=== PATIENT | male | born 1940 | race Caucasian/White ===

== ENCOUNTER → 2019-02-12 | Outpatient (CLI) | payer MEDICARE ==
--- NOTE | 2019-02-12 12:48 | US ---
EXAMINATION TYPE: US kidneys/renal and bladder DATE OF EXAM: 02/12/2019 COMPARISON: NONE CLINICAL HISTORY: R31.9 hematuria. Pt states gross hematuria EXAM MEASUREMENTS: Right Kidney: 11.7 x 5.7 x 4.8 cm Left Kidney: 10.9 x 4.8 x 5.3 cm Right Kidney: Cyst upper pole= 0.9 x 0.6 x 0.8 cm Left Kidney: Cystic lesion lateral= 1.8 x 2.0 x 1.9 cm. This may have a septation or be [address] Recommend follow-up Bladder: wnl Bilateral Jets seen: Yes IMPRESSION: 1. Bilateral renal cysts. The one on the left may contain a septation and follow-up monitoring is rec ommended
== END | disposition home or self-care (01) ==
LOC: RADUSWWP 12:11
PROVIDERS: ATTEND Urology
DX: N28.1 Cyst of kidney, acquired (principal)
CPT/HCPCS: 76770

== ENCOUNTER → 2019-03-10 | Outpatient (CLI) | payer MEDICARE ==
[2019-03-10 08:54] LABS: African American GFR (CKD) >90 (>60 ml/min/1.73 sqM); Blood Urea Nitrogen 21 mg/dL (9-20)
--- NOTE | 2019-03-10 09:59 | CT ---
EXAMINATION TYPE: CT abdomen wo/w con DATE OF EXAM: 03/10/2019 COMPARISON: Renal ultrasound February 12, 2019 HISTORY: Cyst of kidney, acquired CT DLP: 989 mGycm, Automated Exposure Control for Dose Reduction was Utilized. CONTRAST: CT scan of the abdomen is performed without oral and without and with IV Contrast, patient injected w ith 100 ml mL of Isovue 300. FINDINGS: LUNG BASES: Left basilar linear scarring and/or atelectasis. LIVER/GB: Scattered hypodense lesions throughout the liver most prominent left hepatic lobe are felt to reflect thin-walled cysts. Majority are near or subcentimeter in size PANCREAS: No significant abnormality is seen. SPLEEN: No significant abnormality is seen. ADRENALS: No significant abnormality is seen. KIDNEYS: No renal stones are evident bilaterally. Postcontrast images show symmetric cortical medull seferino uptake and excretion without hydronephrosis seen bilaterally. I do not see simple-appearing subce ntimeter cyst upper pole right kidney. There is some ill-defined fluid along posterior margin subcent imeter in size. There is subcentimeter low dense lesion anteriorly lower pole right kidney measures 3 9 series 11 to small to further characterize for presumed benign. Corresponding to recent ultrasound there is upper to mid pole simple appearing thin-walled cyst measuring 1.8 x 1.5 cm image 25 series 1 1. No suspicious thickened septa or nodularity. No enhancement. BOWEL: No significant abnormality is seen. LYMPH NODES: No greater than 1cm abdominal or pelvic lymph nodes are appreciated. OSSEOUS STRUCTURES: Multilevel spondylolisthesis and spurring in the thoracolumbar spine. Moderate di sc space narrowing L4-L5 level. OTHER: No significant additional abnormality is seen. IMPRESSION: 1. No concerning solid or cystic renal masses bilaterally with particular attention to le ft kidney at area of ultrasound concern.
== END ==
LOC: RADCTMAIN 07:47
PROVIDERS: ATTEND Urology
DX: N28.1 Cyst of kidney, acquired (principal)
CPT/HCPCS: 82565; 84520; 74170; 36415; Q9967

== ENCOUNTER 2019-10-05 20:23 | Emergency (ER) | payer MEDICARE ==
[2019-10-05 20:32] VITALS: RESP 18; TEMP 98.4
[2019-10-05] MEDS ORDERED: DIPH,PERTUS(ACELL)TETVAC-LF 0.5 ML VIAL IM ONE (20:48)
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
[2019-10-05 22:46] VITALS: BP 140/84; PULSE 54
== END 2019-10-05 22:46 | disposition home or self-care (01) ==
LOC: EC 20:23
DX: S00.83XA Contusion of other part of head, initial encounter (principal); S40.212A Abrasion of left shoulder, initial encounter; S01.112A Laceration without foreign body of left eyelid and periocular area, initial encounter; Z23 Encounter for immunization; V13.4XXA Pedal cycle driver injured in collision with car, pick-up truck or van in traffic accident, initial encounter; Y92.410 Unspecified street and highway as the place of occurrence of the external cause
CPT/HCPCS: 70450; 70486; 71046; 72125; 90471; 90715; 99284

== ENCOUNTER 2020-12-23 11:09 | Inpatient (IN) | payer MEDICARE ==
--- NOTE | 2020-12-23 11:46 | ED ---
General Adult HPI - General Chief complaint: Abdominal Pain Stated complaint: Lower L abd pain Time Seen by Provider: 12/23/20 11:16 Source: patient, RN notes reviewed, old records reviewed Mode of arrival: ambulatory Limitations: no limitations - History of Present Illness Initial comments: 80-year-old male presenting with worsening left lower abdominal pain. Patient states he has had symptoms for the past 6 months. Today this pain became more severe and lasted for a longer period of time. No vomiting or diarrhea. No fevers. He states he has had an unexplained weight loss. He believes his last colonoscopy was 5 years ago. Denies scrotal pain. - Related Data Allergies Allergy/AdvReac Type Severity Reaction Status Date / Time No Known Allergies Allergy Verified 12/23/20 11:13 Review of Systems ROS Statement: Those systems with pertinent positive or pertinent negative responses have been documented in the HPI. ROS Other: All systems not noted in ROS Statement are negative. Past Medical History Past Medical History: Cancer, Prostate Disorder History of Any Multi-Drug Resistant Organisms: None Reported Past Surgical History: No Surgical Hx Reported Past Psychological History: No Psychological Hx Reported Smoking Status: Never smoker Past Alcohol Use History: None Reported Past Drug Use History: None Reported General Exam Limitations: no limitations General appearance: alert, in no apparent distress Head exam: Present: atraumatic, normocephalic Eye exam: Present: normal appearance, PERRL ENT exam: Present: normal exam Neck exam: Present: normal inspection. Absent: tenderness, meningismus Respiratory exam: Present: normal lung sounds bilaterally, respiratory distress Cardiovascular Exam: Present: normal rhythm, bradycardia GI/Abdominal exam: Present: soft, tenderness (Left lower quadrant), hernia (Left inguinal hernia, tender, incarcerated). Absent: distended Extremities exam: Present: normal inspection, normal capillary refill. Absent: pedal edema Neurological exam: Present: alert, oriented X3, CN II-XII intact. Absent: motor sensory deficit Psychiatric exam: Present: normal affect, normal mood Skin exam: Present: warm, dry, intact Course Vital Signs 12/23/20 12/23/20 11:10 13:00 Temperature 97.5 F L Pulse Rate 43 L 44 L Respiratory 18 20 Rate Blood Pressure 162/69 142/81 O2 Sat by Pulse 98 99 Oximetry EKG Findings - EKG Comments: EKG Findings:: EKG: Sinus bradycardia, rate of 46, IL interval 158, QRS duration 94, QTC 392. No ST segment elevation. Medical Decision Making - Medical Decision Making CT shows left inguinal hernia which is incarcerated. Case discussed with Dr. Ley who will admit. - Lab Data Result diagrams: 12/23/20 11:46 12/23/20 11:46 Lab Results 12/23/20 12/23/20 12/23/20 Range/Units 11:46 11:46 11:46 WBC 12.6 H (3.8-10.6) k/uL RBC 5.17 (4.30-5.90) m/uL Hgb 16.9 (13.0-17.5) gm/dL Hct 50.8 (39.0-53.0) % MCV 98.3 (80.0-100.0) fL MCH 32.6 (25.0-35.0) pg MCHC 33.2 (31.0-37.0) g/dL RDW 13.6 (11.5-15.5) % Plt Count 250 (150-450) k/uL MPV 7.2 Neutrophils % 86 % Lymphocytes % 8 % Monocytes % 4 % Eosinophils % 0 % Basophils % 1 % Neutrophils # 10.9 H (1.3-7.7) k/uL Lymphocytes # 1.1 (1.0-4.8) k/uL Monocytes # 0.5 (0-1.0) k/uL Eosinophils # 0.1 (0-0.7) k/uL Basophils # 0.1 (0-0.2) k/uL Sodium 138 (137-145) mmol/L Potassium 4.3 (3.5-5.1) mmol/L Chloride 105 (98-107) mmol/L Carbon Dioxide 26 (22-30) mmol/L Anion Gap 7 mmol/L BUN 19 (9-20) mg/dL Creatinine 0.57 L (0.66-1.25) mg/dL Est GFR (CKD-EPI)AfAm >90 (>60 ml/min/1.73 sqM) Est GFR (CKD-EPI)NonAf >90 (>60 ml/min/1.73 sqM) Glucose 111 H (74-99) mg/dL Plasma Lactic Acid Fady 1.3 (0.7-2.0) mmol/L Calcium 9.6 (8.4-10.2) mg/dL Total Bilirubin 0.9 (0.2-1.3) mg/dL AST 28 (17-59) U/L ALT 18 (4-49) U/L Alkaline Phosphatase 64 (38-126) U/L Total Protein 6.6 (6.3-8.2) g/dL Albumin 4.2 (3.5-5.0) g/dL Amylase 104 (30-110) U/L Lipase 119 (23-300) U/L Urine Color Urine Appearance (Clear) Urine pH (5.0-8.0) Ur Specific [place] (1.001-1.035) Urine Protein (Negative) Urine Glucose (UA) (Negative) Urine Ketones (Negative) Urine Blood (Negative) Urine Nitrite (Negative) Urine Bilirubin (Negative) Urine Urobilinogen (<2.0) mg/dL Ur Leukocyte Esterase (Negative) 12/23/20 Range/Units 13:00 WBC (3.8-10.6) k/uL RBC (4.30-5.90) m/uL Hgb (13.0-17.5) gm/dL Hct (39.0-53.0) % MCV (80.0-100.0) fL MCH (25.0-35.0) pg MCHC (31.0-37.0) g/dL RDW (11.5-15.5) % Plt Count (150-450) k/uL MPV Neutrophils % % Lymphocytes % % Monocytes % % Eosinophils % % Basophils % % Neutrophils # (1.3-7.7) k/uL Lymphocytes # (1.0-4.8) k/uL Monocytes # (0-1.0) k/uL Eosinophils # (0-0.7) k/uL Basophils # (0-0.2) k/uL Sodium (137-145) mmol/L Potassium (3.5-5.1) mmol/L Chloride (98-107) mmol/L Carbon Dioxide (22-30) mmol/L Anion Gap mmol/L BUN (9-20) mg/dL Creatinine (0.66-1.25) mg/dL Est GFR (CKD-EPI)AfAm (>60 ml/min/1.73 sqM) Est GFR (CKD-EPI)NonAf (>60 ml/min/1.73 sqM) Glucose (74-99) mg/dL Plasma Lactic Acid Fady (0.7-2.0) mmol/L Calcium (8.4-10.2) mg/dL Total Bilirubin (0.2-1.3) mg/dL AST (17-59) U/L ALT (4-49) U/L Alkaline Phosphatase (38-126) U/L Total Protein (6.3-8.2) g/dL Albumin (3.5-5.0) g/dL Amylase (30-110) U/L Lipase (23-300) U/L Urine Color Yellow Urine Appearance Clear (Clear) Urine pH 7.0 (5.0-8.0) Ur Specific [place] 1.050 H (1.001-1.035) Urine Protein Negative (Negative) Urine Glucose (UA) Negative (Negative) Urine Ketones 1+ H (Negative) Urine Blood Negative (Negative) Urine Nitrite Negative (Negative) Urine Bilirubin Negative (Negative) Urine Urobilinogen <2.0 (<2.0) mg/dL Ur Leukocyte Esterase Negative (Negative) Disposition Clinical Impression: Inguinal hernia Disposition: ADMITTED IP TO THIS [facility] Condition: Stable Is patient prescribed a controlled substance at d/c from ED?: No Referrals: Avila Wang MD [Primary Care Provider] - 1-2 days Decision to Admit Reason: Admit from EC Decision Date: 12/23/20 Decision Time: 14:14
[2020-12-23 11:59] LABS: Basophils # (A) 0.1 k/uL (0-0.2); Basophils % (A) 1 %; Eosinophils # (A) 0.1 k/uL (0-0.7); Eosinophils % (A) 0 %; HCT 50.8 % (39.0-53.0); HGB 16.9 gm/dL (13.0-17.5); Lymphocytes # (A) 1.1 k/uL (1.0-4.8); Lymphocytes % (A) 8 %; MCH 32.6 pg (25.0-35.0); MCHC 33.2 g/dL (31.0-37.0); MCV 98.3 fL (80.0-100.0); Mean Platelet Volume 7.2; Monocytes # (A) 0.5 k/uL (0-1.0); Monocytes % (A) 4 %; Neutrophils # (A) 10.9 k/uL (1.3-7.7); Neutrophils % (A) 86 %; Platelet Count 250 k/uL (150-450); RBC 5.17 m/uL (4.30-5.90); RDW 13.6 % (11.5-15.5); WBC 12.6 k/uL (3.8-10.6)
[2020-12-23 12:07] LABS: ALT 18 U/L (4-49); AST 28 U/L (17-59); African American GFR (CKD) >90 (>60 ml/min/1.73 sqM); Albumin 4.2 g/dL (3.5-5.0); Alkaline Phosphatase 64 U/L (38-126); Amylase 104 U/L (30-110); Anion Gap 7 mmol/L; Blood Urea Nitrogen 19 mg/dL (9-20); Calcium 9.6 mg/dL (8.4-10.2); Carbon Dioxide 26 mmol/L (22-30); Chloride 105 mmol/L (98-107); Glucose 111 mg/dL (74-99); Lipase 119 U/L (23-300); Non-African American GFR(CKD) >90 (>60 ml/min/1.73 sqM); Potassium 4.3 mmol/L (3.5-5.1); Sodium 138 mmol/L (137-145); Total Bilirubin 0.9 mg/dL (0.2-1.3); Total Protein 6.6 g/dL (6.3-8.2)
[2020-12-23] MEDS ORDERED: HYDROmorphone 0.5 MG/0.5 ML SYRINGE IVP STA (12:48)
--- NOTE | 2020-12-23 12:54 | CT ---
EXAMINATION TYPE: CT abdomen pelvis w con DATE OF EXAM: 12/23/2020 COMPARISON: 03/10/2019 INDICATION: left lower quadrant pain DLP: 635.6 mGycm, Automated exposure control for dose reduction was used. CONTRAST: 100 mL of Isovue 300. Study performed without Oral Contrast TECHNIQUE: Axial images were obtained from above the diaphragm to the pubic rami in the axial plane a t 5 mm thick sections. Reconstructed images are reviewed on the computer in the coronal plane. FINDINGS: Limited CT sections are obtained the lung bases. The lung bases are clear. CT ABDOMEN: Liver: Multiple cysts are scattered through the liver. Spleen: Normal Pancreas: Normal Adrenal glands: The adrenal glands are normal. Gallbladder: Normal Kidneys: No masses are evident. No hydronephrosis is present. Tiny cortical renal cysts on the righ t kidney. Delayed images were obtained through the kidneys, which remain unremarkable. Aorta: Vascular calcification is within the aorta. Inferior vena cava: Normal. CT PELVIS: There is some dilated small bowel loops containing fluid within the pelvis. Multiple scattered divert iculi without acute diverticulitis are within the sigmoid colon. There is a left inguinal hernia cont aining some fluid. Some bowel involvement is suspected and may be contributing to the apparent partia l small bowel obstruction. Clinical correlation recommended. Study is performed without Sarahy cont rast limiting evaluation. Appendix: Normal as visualized. Urinary bladder: Normal. Genitourinary structures: Multiple brachytherapy seeds are present in the prostate bed. Osseous structures: No suspicious lytic or sclerotic lesions. Degenerative disc through the lumbar sp ine. Mild degenerative changes are bilateral hips. IMPRESSIONS: 1. Appears to be some involvement of a left inguinal hernia with small bowel loops. Adjacent Dilated small bowel loops are suggesting partial small bowel obstruction. Clinical correlation recommended.
[2020-12-23] MEDS ORDERED: ONDANSETRON 4 MG/2 ML VIAL IVP STA (12:58)
[2020-12-23 13:23] LABS: Appearance,Urine Clear (Clear); Bilirubin,Urine Negative (Negative); Blood,Urine Negative (Negative); Color,Urine Yellow; Glucose,Urine (UA) Negative (Negative); Ketones,Urine 1+ (Negative); Leukocyte Esterase,Urine Negative (Negative); Nitrite,Urine Negative (Negative); Protein,Urine Negative (Negative); Urobilinogen,Urine <2.0 mg/dL (<2.0)
[2020-12-23] MEDS ORDERED: SODIUM CHLORIDE 0.9% 500 ML 500 ML IV ONE (13:36)
[2020-12-23] MEDS ORDERED: ONDANSETRON 4 MG/2 ML VIAL IVP PRN (14:13)
[2020-12-23] MEDS ORDERED: NALOXONE 0.4 MG/ML 1 ML VIAL IV PRN (14:13)
[2020-12-23 14:14] LABS: Partial Thromboplastin Time 22.4 sec (22.0-30.0); Prothrombin Time 10.7 sec (9.0-12.0)
--- NOTE | 2020-12-23 14:26 | P.GSHP ---
History of Present Illness H&P Date: 12/23/20 CHIEF COMPLAINT: Incarcerated left inguinal hernia HISTORY OF PRESENT ILLNESS: The patient is a 80 year old male who presents acutely to the emergency room following acute left groin pain. Patient notes at least a 6 month history of intermittent incarcerated left inguinal hernia. His family including is at bedside. She reports that her has been in pain and has deferred any treatment. Patient reports he is unable to reduce his left inguinal hernia since his presentation. Since admission, his pain has been reduced from moderate to mild. He is able to pass flatus. He reports having bowel movements. "I have no problem passing gas.". He reports hunger. He is admitted for incarcerated left inguinal hernia, symptomatic. He denies any prior surgeries to the abdomen. PAST MEDICAL HISTORY: See list and reviewed PAST SURGICAL HISTORY: See list and reviewed MEDICATIONS: See list and reviewed ALLERGIES: See list and reviewed SOCIAL HISTORY: See list and reviewed FAMILY HISTORY: See list and reviewed REVIEW OF ORGAN SYSTEMS: CONSTITUTIONAL: No fevers or chills. No recent weight loss. Body mass index 19.4. EYES: Denies any trouble with vision. No glasses. HEENT: No difficulties with hearing. No nosebleeds. No difficulty swallowing. RESPIRATORY: Denies pneumonia. Denies any troubles with breathing or dyspnea on exertion. CARDIOVASCULAR: Denies any recent chest pain, palpitations, or recent heart attacks. Has bradycardia. GASTROINTESTINAL: Denies fatty food intolerance. Denies change in bowel habits and gas bloat. GENITOURINARY: Denies any blood in urine or increased urinary frequency. NEUROLOGICAL: Denies any numbness or tingling along the distal extremities. No seizure disorders or headaches. MUSCULOSKELETAL: Denies any back pain, stiffness or joint arthritis. SKIN: No current skin cancer. No rash. PSYCHIATRIC: Denies current depression or suicidal thoughts. ENDOCRINE: Denies current thyroid disorders. Denies any blood sugar glucose intolerance. HEME/LYMPHATIC: Denies any lumps and bumps around the neck. No recent deep v enous thrombosis. ALLERGY/IMMUNOLOGY: No immunoglobulin therapy. No immune deficiencies. BREAST: Denies current breast lumps, pain or nipple discharge. PHYSICAL EXAM: VITALS: Reviewed CONSTITUTIONAL: Well developed and in no acute distress. EYES: Conjuctivae without sclera icterus. Extraocular movements grossly intact. HEAD, EARS, NOSE, THROAT: Moist buccal mucosa. Head is atraumatic, normo cephalic. No nasal drainage. NECK:No JV distention. No gross thyroidomegaly. RESPIRATORY: Non-labored respirations and equal bilateral excursions. No gross wheezes. CARDIOVASCULAR: Bradycardic. Extremities without moderate edema. ABDOMEN: Swelling along the left groin. No peritonitis. LYMPH: No gross neck lymphadenopathy. MUSCULOSKELETAL: No clubbing cyanosis. No gross deformities of the lower extremities. SKIN: Warm and well perfused with good skin turgor. NEUROLOGIC: Cranial nerves II through XII grossly intact. Sensation upper and extremities intact. No focal or lateralizing signs. PSYCH: Appropriate affect. Alert and oriented to person, place and time. Displays appropriate insight. CLINCAL LABS: Reviewed. WBC elevated at 12,000. IMAGING: Independently reviewed CT of the abdomen and pelvis demonstrating fluid content along the left groin. Gas and stool in the colon. Minimal dilation of the small bowel. No free air. This is my independent interpretation. RADIOLOGY: Report reviewed of the CT of the abdomen and pelvis demonstrating left inguinal hernia containing small bowel. EKG: Sinus bradycardia ASSESSMENT: 1. Incarcerated left inguinal hernia with partial small bowel obstruction 2. Symptomatic bradycardia PLAN: 1. Options for management were described. Patient and family agreeable for admission with cardiology risk assessment as he has bradycardia. 2. Benefits and risks of surgical extensions were reviewed. 3. Surgery pending cardiac risk assessment completion. 4. He reports new unexplained weight loss. Will get medical consultation and TSH. 5. ADVANCE DIRECTIVE: Patient has advance directive with FULL CODE with instructions and no vent. Thank you for this kind consultation. Past Medical History Past Medical History: Cancer, Prostate Disorder History of Any Multi-Drug Resistant Organisms: None Reported Past Surgical History: No Surgical Hx Reported Past Psychological History: No Psychological Hx Reported Smoking Status: Never smoker Past Alcohol Use History: None Reported Past Drug Use History: None Reported Medications and Allergies Home Medications Medication Instructions Recorded Confirmed Type Aspirin EC [Ecotrin Low Dose] 81 mg PO DAILY 12/23/20 12/23/20 History Cholecalciferol [Vitamin D3 (25 50 mcg PO DAILY 12/23/20 12/23/20 History Mcg = 1000 Iu)] Glucosam/Ras-Msm1/C/Atul/Bosw 1 tab PO BID 12/23/20 12/23/20 History [Glucosamine-Chondroitin Tablet] Magnesium 250 mg PO DAILY 12/23/20 12/23/20 History Allergies Allergy/AdvReac Type Severity Reaction Status Date / Time No Known Allergies Allergy Verified 12/23/20 14:33 Surgical - Exam Vital Signs Temp Pulse Resp BP Pulse Ox 97.5 F L 43 L 18 162/69 98 12/23/20 11:10 12/23/20 11:10 12/23/20 11:10 12/23/20 11:10 12/23/20 11:10 Results - Labs 12/23/20 11:46 12/23/20 11:46 Abnormal Lab Results - Last 24 Hours (Table) 12/23/20 12/23/20 12/23/20 Range/Units 11:46 11:46 13:00 WBC 12.6 H (3.8-10.6) k/uL Neutrophils # 10.9 H (1.3-7.7) k/uL Creatinine 0.57 L (0.66-1.25) mg/dL Glucose 111 H (74-99) mg/dL Ur Specific [place] 1.050 H (1.001-1.035) Urine Ketones 1+ H (Negative) Diabetes panel 12/23/20 Range/Units 11:46 Sodium 138 (137-145) mmol/L Potassium 4.3 (3.5-5.1) mmol/L Chloride 105 (98-107) mmol/L Carbon Dioxide 26 (22-30) mmol/L BUN 19 (9-20) mg/dL Creatinine 0.57 L (0.66-1.25) mg/dL Glucose 111 H (74-99) mg/dL Calcium 9.6 (8.4-10.2) mg/dL AST 28 (17-59) U/L ALT 18 (4-49) U/L Alkaline Phosphatase 64 (38-126) U/L Total Protein 6.6 (6.3-8.2) g/dL Albumin 4.2 (3.5-5.0) g/dL Calcium panel 12/23/20 Range/Units 11:46 Calcium 9.6 (8.4-10.2) mg/dL Albumin 4.2 (3.5-5.0) g/dL Pituitary panel 12/23/20 Range/Units 11:46 Sodium 138 (137-145) mmol/L Potassium 4.3 (3.5-5.1) mmol/L Chloride 105 (98-107) mmol/L Carbon Dioxide 26 (22-30) mmol/L BUN 19 (9-20) mg/dL Creatinine 0.57 L (0.66-1.25) mg/dL Glucose 111 H (74-99) mg/dL Calcium 9.6 (8.4-10.2) mg/dL Adrenal panel 12/23/20 Range/Units 11:46 Sodium 138 (137-145) mmol/L Potassium 4.3 (3.5-5.1) mmol/L Chloride 105 (98-107) mmol/L Carbon Dioxide 26 (22-30) mmol/L BUN 19 (9-20) mg/dL Creatinine 0.57 L (0.66-1.25) mg/dL Glucose 111 H (74-99) mg/dL Calcium 9.6 (8.4-10.2) mg/dL Total Bilirubin 0.9 (0.2-1.3) mg/dL AST 28 (17-59) U/L ALT 18 (4-49) U/L Alkaline Phosphatase 64 (38-126) U/L Total Protein 6.6 (6.3-8.2) g/dL Albumin 4.2 (3.5-5.0) g/dL
[2020-12-23] MEDS: SODIUM CHLORIDE 0.9% 1,000 ML IV SCH (14:29)
[2020-12-23] MEDS: ACETAMINOPHEN TAB 325 MG TAB PO SCH (16:58)
[2020-12-23] MEDS: HYDROmorphone 0.5 MG/0.5 ML SYRINGE IVP PRN ×2 (16:58→22:55)
[2020-12-24] MEDS: ACETAMINOPHEN TAB 325 MG TAB PO SCH ×5 (00:25→23:08)
--- NOTE | 2020-12-24 03:02 | P.CONS ---
History of Present Illness - Reason for Consult Consult date: 12/23/20 Medical management Requesting physician: Linda Ley - Chief Complaint Left lower abdominal pain - History of Present Illness 80-year-old male with prostate cancer status post radiation seeding Patient comes in with worsening left lower quadrant abdominal pain he claims that has started around 6 months ago however yesterday became severe 10 out of 10 in severity sharp pain not related to any activity or food denies any trauma denies any fevers or chills denies any changes in his urination or bowel habits he denies any abdominal distention denies any nausea vomiting denies any diarrhea denies any bloody bowel movements and eyes any recent traveling or & 3 food or drink denies any urinary symptoms In the ED imaging was done showed incarcerated left inguinal hernia for which patient admitted to general surgery service Patient also reported weight loss, he claims to be up-to-date on age-appropriate cancer screening his most recent colonoscopy was about 5 years ago denies any abnormalities then. Patient claims that he sees his physician twice a year, and he gets these regular checkups and blood work done on regular basis Patient reports that pain is well tolerated and controlled with current medications and know where is near the severe pain that he had yesterday Patient otherwise denies any cardiac history, at baseline is able to function at moderate to high level of activity with no limitations denies any history of coronary artery disease or CHF denies any syncope or arrhythmia Review of Systems Pertinent positives as noted in HPI. All other systems were reviewed and are negative Past Medical History Past Medical History: Cancer, Prostate Disorder Additional Past Medical History / Comment(s): prostate cancer, seed implant History of Any Multi-Drug Resistant Organisms: None Reported Past Surgical History: No Surgical Hx Reported Past Anesthesia/Blood Transfusion Reactions: No Reported Reaction Past Psychological History: No Psychological Hx Reported Smoking Status: Never smoker Past Alcohol Use History: None Reported Past Drug Use History: None Reported - Past Family History Family Family Medical History: No Reported History Medications and Allergies Home Medications Medication Instructions Recorded Confirmed Type Aspirin EC [Ecotrin Low Dose] 81 mg PO DAILY 12/23/20 12/23/20 History Cholecalciferol [Vitamin D3 (25 50 mcg PO DAILY 12/23/20 12/23/20 History Mcg = 1000 Iu)] Glucosam/Ras-Msm1/C/Atul/Bosw 1 tab PO BID 12/23/20 12/23/20 History [Glucosamine-Chondroitin Tablet] Magnesium 250 mg PO DAILY 12/23/20 12/23/20 History Allergies Allergy/AdvReac Type Severity Reaction Status Date / Time No Known Allergies Allergy Verified 12/23/20 14:33 Physical Exam Vitals: Vital Signs Temp Pulse Pulse Resp BP BP Pulse Ox 12/23/20 15:30 97.9 F 46 L 18 137/67 97 12/23/20 13:00 44 L 20 142/81 99 12/23/20 11:10 97.5 F L 43 L 18 162/69 98 Intake and Output 12/23/20 12/23/20 12/23/20 06:59 14:59 22:59 Intake Total 150 Balance 150 Intake: Intake, IV Titration 150 Amount Sodium Chloride 0.9% 1, 150 000 ml @ 75 mls/hr IV . [id number] [facility] Rx#:[id number] Other: # Voids 1 Weight 61.235 kg 61.235 kg Constitutional: No acute distress, conversant, pleasant Eyes: Anicteric sclerae, moist conjunctiva, Pupils equal round reactive to light ENMT: NC/AT Oropharynx clear, no erythema, or exudates Neck: Supple, FROM, no masses, or JVD No carotid bruits No thyromegaly Lungs: Clear to auscultation Clear to percussion Normal respiratory effort, no accessory muscle use Cardiovascular: Heart regular in rate and rhythm, No murmurs, gallops, or rubs No peripheral edema Abdominal: Soft Tenderness to palpation of a lump in the left inguinal region no visible skin changes over it no erythema warmth or swelling, no guarding, rebound or rigidity Abdomen moving with respiration Normoactive bowel sounds No hepatomegaly, No splenomegaly No palpable mass No abdominal wall hernia noted Skin: Normal temperature, tone, texture, turgor No induration No subcutaneous nodules No rash, lesions No ulcers Extremities: No digital cyanosis No clubbing Pedal pulses intact and symmetrical Radial pulses intact and symmetrical No calf tenderness Psychiatric: Alert and oriented to person, place and time Appropriate affect fair judgement Neuro Muscles Strength 5/5 in all 4 extremities Sensation to light touch grossly present throughout Cranial nerves II-XII grossly intact No focal sensory deficits Lymphatics: no palpable cervical or supraclavicular , or inguinal lymph nodes Results CBC & Chem 7: 12/23/20 11:46 12/23/20 11:46 Labs: Abnormal Lab Results - Last 24 Hours (Table) 12/23/20 12/23/20 12/23/20 Range/Units 11:46 11:46 13:00 WBC 12.6 H (3.8-10.6) k/uL Neutrophils # 10.9 H (1.3-7.7) k/uL Creatinine 0.57 L (0.66-1.25) mg/dL Glucose 111 H (74-99) mg/dL Ur Specific [place] 1.050 H (1.001-1.035) Urine Ketones 1+ H (Negative) Assessment and Plan Assessment: Left inguinal incarcerated hernia Management per general surgery team Pain control Surgical intervention is awaiting cardiology clearance Nothing by mouth for incarcerated inguinal hernia and possible intervention Sinus bradycardia asymptomatic Continue to monitor Patient denies any history of coronary artery disease, denies any syncope, denies any history of congestive heart failure Unintentional weight loss Patient claims that he has regular follow-ups and check with his primary care physician about twice a year He claims to be up-to-date on age-appropriate cancer screening with colonoscopy done about 5 years ago no abnormalities reported then Patient denies any GI bleeding History of prostate cancer status post seed implant Continue to follow up outpatient with PCP Check thyroid function Thank you for allowing us to participate in the care of this patient. Do not hesitate to contact us with questions. Someone can be reached from the [facility] hospitalist group at all hours of the day at [phone].
[2020-12-24] MEDS: SODIUM CHLORIDE 0.9% 1,000 ML IV SCH ×2 (03:33→16:55)
[2020-12-24] MEDS: HYDROmorphone 0.5 MG/0.5 ML SYRINGE IVP PRN ×2 (07:58→16:58)
--- NOTE | 2020-12-24 12:25 | P.PN ---
Subjective Progress Note Date: 12/24/20 Hospital course: Patient is a very pleasant 80-year-old male with a past medical history of prostate cancer status post radiation seed implant and presented to the emergency department on 12/23/20 with a chief complaint of left lower quadrant abdominal pain which reportedly started approximately 6 months ago waxing and waning and progressively worsening until it became very sharp and severe resulting in him seeking medical treatment. In the emergency department patient was seen and fully evaluated. He had a CT abdomen and pelvis which revealed an incarcerated left inguinal hernia with adjacent dilated small bowel loops suggestive of partial small bowel obstruction. Patient admitted under Gen. surgery and we have been consulted for continued medical management. Physical exam: Patient was seen and fully evaluated at the bedside this morning. He reports nausea this morning but denies any episodes of vomiting. He states continued abdominal pain/discomfort to left lower quadrant, suprapubic, and lower umbil ical regions. Patient denies having any chest pain, palpitations, shortness of breath, dizziness, lightheadedness, or experiencing any numbness/tingling/weakness/swelling in his extremities. Vital signs reviewed and stable. General: Nontoxic, no distress and appears stated age. Derm: Skin warm and dry, normal coloration for ethnicity. Head: Atraumatic, normocephalic and symmetric. Eyes: EOMs intact, no lid lag, and anicteric sclera Mouth: no lip lesions, mucus membranes moist Cardiovascular: regular rate and rhythm with normal S1S2, no murmur, positive posterior tibial pulses bilaterally, and cap refill < 2 seconds. Lungs: Respirations even, regular, and unlabored on room air. Lungs CTA bilaterally, no rhonchi, no rales, no wheezing, and no accessory muscle usage. Abdominal: soft, tenderness reported to left lower quadrant and suprapubic/lower umbilical region upon palpation, no guarding, no appreciable organomegaly Ext: ROM intact. No gross muscle atrophy, no edema, no contractures Neuro: Speech clear, face symmetrical and CN II-XII grossly intact with no noted focal neuro deficits Psych: Alert and oriented to person, place, time, and situation. Appropriate and pleasant affect. Assessment and Plan of Care: Left inguinal incarcerated hernia with adjacent dilated small bowel loops suggestive of partial small bowel obstruction -Management per primary admitting general surgery team -Symptomatic treatment and pain management -Surgical intervention awaiting cardiology clearance in which echocardiogram was ordered -Regular diet, nothing by mouth at midnight for planned surgical intervention by Dr. Cruz Asymptomatic sinus bradycardia -Continuous telemetry monitoring -Cardiology following -TSH 2.150 Unintentional weight loss -Patient reports following with PCP regularly for checkups. -Patient states Up to date on cancer screening with colonoscopy completed 5 years prior with reports of normal findings -We will consult nutrition services once pt is cleared by general surgery to resume diet. -TSH normal findings at 2.150. Thank you for allowing us to participate in the care of this pleasant patient. Do not hesitate to contact us with questions. Someone can be reached from the [facility] hospitalist group all hours of the day at [phone] or via [employer]. Objective - Vital Signs Vital signs: Vital Signs Temp 97.4 F L 12/24/20 08:00 Pulse 52 L 12/24/20 08:00 Resp 16 12/24/20 08:00 BP 150/79 12/24/20 08:00 Pulse Ox 97 12/24/20 08:00 Intake & Output 12/23/20 12/24/20 12/24/20 18:59 06:59 18:59 Intake Total 150 Balance 150 Weight 61.235 kg Intake: Intake, IV Titration 150 Amount Sodium Chloride 0.9% 1, 150 000 ml @ 75 mls/hr IV . [id number] [facility] Rx#:[id number] Other: Voiding Method Toilet # Voids 1 - Labs CBC & Chem 7: 12/23/20 11:46 12/23/20 11:46 Labs: Abnormal Lab Results - Last 24 Hours (Table) 12/23/20 Range/Units 13:00 Ur Specific [place] 1.050 H (1.001-1.035) Urine Ketones 1+ H (Negative)
--- NOTE | 2020-12-24 13:24 | P.CRDCN ---
History of Present Illness Consult date: 12/24/20 History of present illness: HISTORY OF PRESENT ILLNESS: This is a 80-year-old male with a past medical history significant for prostate cancer. 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 We have been asked to see the patient in consultation for cardiac clearance. Patient is scheduled for left inguinal hernia repair tomorrow with Dr. Ley. Patient examined at the bedside. Patient currently denies any chest pain or pressure. He denies any shortness of breath. Patient states he is able to lay flat without any dyspnea. He is able to ambulate a decent amount without feeling short of breath or having any chest pain. Patient is a nonsmoker. Patient's CT has been fairly healthy his whole life without any major health problems. Patient is unsure if he has ever had a stress test performed but he thinks he may have had one many years ago. EKG reveals sinus bradycardia with no signs of acute ischemia Laboratory data: WBC 12.6. Hemoglobin 16.9. Platelet count 250. Sodium 138. Potassium 4.3. BUN 19. Creatinine 0.57. Lactic acid 1.3. Current home cardiac medications include aspirin 81 mg daily REVIEW OF SYSTEMS: At the time of my exam: CONSTITUTIONAL: Denies fever or chills. HEENT: Denies blurred vision, vision changes, or eye pain. Denies hemoptysis CARDIOVASCULAR: Denies chest pain. Denies orthopnea. Denies PND. Denies palpitations RESPIRATORY: Denies shortness of breath. GASTROINTESTINAL: Denies abdominal pain. Denies nausea or vomiting. HEMATOLOGIC: Denies bleeding disorders. GENITOURINARY: Denies any blood in urine. SKIN: Denies pruitis. Denies rash. PHYSICAL EXAM: VITAL SIGNS: Reviewed. GENERAL: Well-developed in no acute distress. HEENT: Head is normocephalic. Pupils are equal, round. Sclerae anicteric. Mucous membranes of the mouth are moist. Neck supple. No JVD or thyromegaly LUNGS: Respirations even and unlabored. Lungs essentially clear to auscultation bilaterally. HEART: Regular rate and rhythm. S1 and S2 heard. ABDOMEN: Soft. Nondistended. Nontender. EXTREMITIES: Normal range of motion. No clubbing or cyanosis. Peripheral pulses intact. No lower extremity edema NEUROLOGIC: Awake and alert. Oriented x 3. ASSESSMENT: Left incarcerated inguinal hernia History of prostate cancer PLAN: Obtain 2-D echo to assess cardiac structure and function Patient has no complaints of angina and clinically is euvolemic with no signs of congestive heart failure There are no absolute contraindications for patient to undergo surgery from a cardiac standpoint Further recommendations pending patient's course Nurse practitioner note has been reviewed by physician. Signing provider agrees with the documented findings, assessment, and plan of care. Past Medical History Past Medical History: Cancer, Prostate Disorder Additional Past Medical History / Comment(s): prostate cancer, seed implant History of Any Multi-Drug Resistant Organisms: None Reported Past Surgical History: No Surgical Hx Reported Past Anesthesia/Blood Transfusion Reactions: No Reported Reaction Past Psychological History: No Psychological Hx Reported Smoking Status: Never smoker Past Alcohol Use History: None Reported Past Drug Use History: None Reported - Past Family History Family Family Medical History: No Reported History Medications and Allergies Home Medications Medication Instructions Recorded Confirmed Type Aspirin EC [Ecotrin Low Dose] 81 mg PO DAILY 12/23/20 12/23/20 History Cholecalciferol [Vitamin D3 (25 50 mcg PO DAILY 12/23/20 12/23/20 History Mcg = 1000 Iu)] Glucosam/Ras-Msm1/C/Atul/Bosw 1 tab PO BID 12/23/20 12/23/20 History [Glucosamine-Chondroitin Tablet] Magnesium 250 mg PO DAILY 12/23/20 12/23/20 History Allergies Allergy/AdvReac Type Severity Reaction Status Date / Time No Known Allergies Allergy Verified 12/23/20 14:33 Physical Exam Vitals: Vital Signs Temp Pulse Resp BP Pulse Ox 12/24/20 08:00 97.4 F L 52 L 16 150/79 97 12/24/20 00:48 98.1 F 55 L 14 106/63 96 12/23/20 20:10 98.2 F 54 L 16 118/63 96 12/23/20 15:30 97.9 F 46 L 18 137/67 97 Intake and Output 12/23/20 12/24/20 12/24/20 22:59 06:59 14:59 Intake Total 150 Balance 150 Intake: Intake, IV Titration 150 Amount Sodium Chloride 0.9% 1, 150 000 ml @ 75 mls/hr IV . [id number] [facility] Rx#:[id number] Other: Voiding Method Toilet # Voids 1 Weight 61.235 kg Results 12/23/20 11:46 12/23/20 11:46 Coagulation 12/23/20 Range/Units 13:46 PT 10.7 (9.0-12.0) sec APTT 22.4 (22.0-30.0) sec Current Medications Generic Name Dose Route Start Last Admin Trade Name Freq PRN Reason Stop Dose Admin Acetaminophen 650 mg 12/23/20 18:00 12/24/20 12:17 Acetaminophen Tab 325 Mg Tab PO 650 mg Q6HR SUHA Administration Hydromorphone HCl 0.5 mg 12/23/20 14:13 12/24/20 07:58 Hydromorphone 0.5 Mg/0.5 Ml Syringe IVP 0.5 mg Q3HR PRN Administration Moderate Pain Sodium Chloride 1,000 mls @ 75 mls/hr 12/23/20 13:45 12/24/20 03:33 Saline 0.9% IV 75 mls/hr .[id number] SUHA Administration Naloxone HCl 0.2 mg 12/23/20 14:13 Naloxone 0.4 Mg/Ml 1 Ml Vial IV Q2M PRN Opioid Reversal Ondansetron HCl 4 mg 12/23/20 14:13 Ondansetron 4 Mg/2 Ml Vial IVP Q8HR PRN Nausea And Vomiting Intake and Output 12/23/20 12/24/20 12/24/20 22:59 06:59 14:59 Intake Total 150 Balance 150 Intake: Intake, IV Titration 150 Amount Sodium Chloride 0.9% 1, 150 000 ml @ 75 mls/hr IV . [id number] [facility] Rx#:[id number] Other: Voiding Method Toilet # Voids 1 Weight 61.235 kg 12/23/20 11:46 12/23/20 11:46
--- NOTE | 2020-12-24 16:16 | P.PN ---
Subjective Progress Note Date: 12/24/20 CHIEF COMPLAINT: Incarcerated left inguinal hernia HISTORY OF PRESENT ILLNESS: The patient is a 80 year old male who presents acutely to the emergency room following acute left groin pain for 2 days. Katherin pearson notes at least a 6 month history of intermittent incarcerated left inguinal hernia. He reports left groin swelling has improved but he has new generalized abdominal pain. He has been seen by cardiology. REVIEW OF ORGAN SYSTEMS: No nausea or vomiting. No new chest pain. No dyspnea. He reports unintentional weight loss for over 6 months. PHYSICAL EXAM: VITALS: Reviewed CONSTITUTIONAL: Well developed and in no acute distress. EYES: Conjuctivae without sclera icterus. Extraocular movements grossly intact. HEAD, EARS, NOSE, THROAT: Moist buccal mucosa. Head is atraumatic, normocephal ic. No nasal drainage. RESPIRATORY: Non-labored respirations and equal bilateral excursions. No gross wheezes. CARDIOVASCULAR: Bradycardic. Extremities without moderate edema. ABDOMEN: Decreased left groin swelling. MUSCULOSKELETAL: No clubbing cyanosis. No gross deformities of the lower extremities. SKIN: Warm and well perfused with good skin turgor. NEUROLOGIC: No focal or lateralizing signs. PSYCH: Alert and oriented to person. CLINCAL LABS: Reviewed. TSH 2.15 ASSESSMENT: 1. Incarcerated left inguinal hernia with partial small bowel obstruction 2. Symptomatic bradycardia 3. Unintentional weight loss. PLAN: 1. He has been seen and cleared from cardiology. 2. Robotic left inguinal hernia described with benefits and risks. Objective - Vital Signs Vital signs: Vital Signs Temp 97.7 F 12/24/20 14:00 Pulse 48 L 12/24/20 14:00 Resp 18 12/24/20 14:00 BP 160/88 12/24/20 14:00 Pulse Ox 99 12/24/20 14:00 Intake & Output 12/23/20 12/24/20 12/24/20 18:59 06:59 18:59 Intake Total 150 Balance 150 Weight 61.235 kg Intake: Intake, IV Titration 150 Amount Sodium Chloride 0.9% 1, 150 000 ml @ 75 mls/hr IV . [id number] [facility] Rx#:[id number] Other: Voiding Method Toilet # Voids 1 - Labs CBC & Chem 7: 12/23/20 11:46 12/23/20 11:46 Assessment and Plan (1) Incarcerated left inguinal hernia Current Visit: Yes Status: Acute Code(s): K40.30 - UNIL INGUINAL HERNIA, W OBST, W/O GANGR, NOT SPCF RECUR SNOMED Code(s): 159275542 (2) Small bowel obstruction Current Visit: Yes Status: Acute Code(s): K56.609 - UNSP INTESTNL OBST, UNSP TO PARTIAL VERSUS COMPLETE OBST SNOMED Code(s): 936811403 (3) Bradycardia Current Visit: Yes Status: Acute Code(s): R00.1 - BRADYCARDIA, UNSPECIFIED SNOMED Code(s): 76697074 (4) Intentional weight loss Current Visit: Yes Status: Acute Code(s): XPY2599 - SNOMED Code(s): 138040441 (5) BMI between 19-24,adult Current Visit: Yes Status: Acute Code(s): CIU3572 - SNOMED Code(s): 751933133
[2020-12-25] MEDS: SODIUM CHLORIDE 0.9% 1,000 ML IV SCH ×2 (04:30→22:05)
[2020-12-25] MEDS: ACETAMINOPHEN TAB 325 MG TAB PO SCH ×4 (05:32→22:08)
[2020-12-25 08:00] LABS: Basophils % (A) 0 %; Eosinophils # (A) 0.3 k/uL (0-0.7); Eosinophils % (A) 3 %; HCT 47.2 % (39.0-53.0); HGB 15.7 gm/dL (13.0-17.5); Lymphocytes # (A) 0.8 k/uL (1.0-4.8); Lymphocytes % (A) 9 %; MCH 32.5 pg (25.0-35.0); MCHC 33.2 g/dL (31.0-37.0); Mean Platelet Volume 7.5; Monocytes # (A) 0.6 k/uL (0-1.0); Monocytes % (A) 6 %; Neutrophils # (A) 7.9 k/uL (1.3-7.7); Neutrophils % (A) 81 %; Platelet Count 217 k/uL (150-450); RBC 4.82 m/uL (4.30-5.90); RDW 13.2 % (11.5-15.5); WBC 9.7 k/uL (3.8-10.6)
[2020-12-25] MEDS: HEPARIN SODIUM,PORCINE/PF 5,000 UNIT/0.5 ML SYRINGE SQ SCH ×2 (08:28→22:04)
[2020-12-25] MEDS: TAMSULOSIN 0.4 MG CAP.ER.24H PO SCH (08:28)
--- NOTE | 2020-12-25 09:04 | P.PN ---
Subjective Progress Note Date: 12/25/20 Hospital course: Patient is a very pleasant 80-year-old male with a past medical history of prostate cancer status post radiation seed implant and presented to the emergency department on 12/23/20 with a chief complaint of left lower quadrant abdominal pain which reportedly started approximately 6 months ago waxing and waning and progressively worsening until it became very sharp and severe resulting in him seeking medical treatment. In the emergency department patient was seen and fully evaluated. He had a CT abdomen and pelvis which revealed an incarcerated left inguinal hernia with adjacent dilated small bowel loops suggestive of partial small bowel obstruction. Patient admitted under Gen. surgery and we have been consulted for continued medical management. Plans for Physical exam: Patient was seen and fully evaluated at the bedside this morning. He was visiting with his collections representative at bedside. Patient reports he is currently free from abdominal pain and nausea at this time. Plans for surgical repair of incarcerated left inguinal hernia to be completed this afternoon with Dr. Ley. Vital signs stable. Morning labs showing no significant abnormalities. Patient continues to deny having any chest pain, palpitations, shortness of breath, dizziness, lightheadedness, or experiencing any numbn ess/tingling/weakness/swelling in his extremities. Vital signs reviewed and stable. General: Nontoxic, no distress and appears stated age. Derm: Skin warm and dry, normal coloration for ethnicity. Head: Atraumatic, normocephalic and symmetric. Eyes: EOMs intact, no lid lag, and anicteric sclera Mouth: no lip lesions, mucus membranes moist Cardiovascular: regular rate and rhythm with normal S1S2, no murmur, positive posterior tibial pulses bilaterally, and cap refill < 2 seconds. Lungs: Respirations even, regular, and unlabored on room air. Lungs CTA bilaterally, no rhonchi, no rales, no wheezing, and no accessory muscle usage. Abdominal: soft, tenderness reported to left lower quadrant and suprapubic/lower umbilical region upon palpation, no guarding, no appreciable organomegaly Ext: ROM intact. No gross muscle atrophy, no edema, no contractures Neuro: Speech clear, face symmetrical and CN II-XII grossly intact with no noted focal neuro deficits Psych: Alert and oriented to person, place, time, and situation. Appropriate and pleasant affect. Assessment and Plan of Care: Left inguinal incarcerated hernia with partial small bowel obstruction -Management per primary admitting general surgery team, plans for surgical intervention later this afternoon with Dr. Cruz. -Symptomatic treatment and pain management. Asymptomatic sinus bradycardia -Continuous telemetry monitoring -Echocardiogram showing normal EF between 60-65% with mild pulmonary hypertension, no significant valvular disorders reported. -Cardiology following. -TSH 2.150. Unintentional weight loss -Patient reports following with PCP regularly for checkups. -Patient states Up to date on cancer screening with colonoscopy completed 5 years prior with reports of normal findings -We will consult nutrition services once pt is cleared by general surgery to resume diet. -TSH normal findings at 2.150. Thank you for allowing us to participate in the care of this pleasant patient. Do not hesitate to contact us with questions. Someone can be reached from the [facility] hospitalist group all hours of the day at [phone] or via [employer]. Objective - Vital Signs Vital signs: Vital Signs Temp 98.3 F 12/25/20 06:30 Pulse 63 12/25/20 06:30 Resp 16 12/25/20 06:30 BP 111/67 12/25/20 06:30 Pulse Ox 97 12/25/20 06:30 Intake & Output 12/24/20 12/25/20 12/25/20 18:59 06:59 18:59 Intake Total 1080 1020 Balance 1080 1020 Intake: Intake, IV Titration 780 Amount Sodium Chloride 0.9% 1, 780 000 ml @ 75 mls/hr IV . [id number] [facility] Rx#:[id number] Oral 1080 240 Other: Voiding Method Toilet # Voids 3 1 - Labs CBC & Chem 7: 12/25/20 07:23 12/23/20 11:46 Labs: Abnormal Lab Results - Last 24 Hours (Table) 12/25/20 Range/Units 07:23 Neutrophils # 7.9 H (1.3-7.7) k/uL Lymphocytes # 0.8 L (1.0-4.8) k/uL
--- NOTE | 2020-12-25 10:15 | ECHOF ---
Referral Reason:Bradycardia, abnormal EKG MEASUREMENTS -------- HEIGHT: 177.8 cm WEIGHT: 61.2 kg BP: 110/67 RVIDd: 3.6 cm (< 3.3) IVSd: 1.2 cm (0.6 - 1.1) LVIDd: 4.3 cm (3.9 - 5.3) LVPWd: 1.1 cm (0.6 - 1.1) IVSs: 1.7 cm LVIDs: 3.2 cm LVPWs: 1.5 cm LA Diam: 3.8 cm (2.7 - 3.8) LAESV Index (A-L): 28.46 ml/m Ao Diam: 3.2 cm (2.0 - 3.7) AV Cusp: 2.3 cm (1.5 - 2.6) MV EXCURSION: 15.618 mm (> 18.000) MV EF SLOPE: 92 mm/s (70 - 150) EPSS: 0.5 cm MV E Andrew: 0.78 m/s MV DecT: 275 ms MV A Andrew: 0.66 m/s MV E/A Ratio: 1.17 AR PHT: 1228 ms RAP: 5.00 mmHg RVSP: 37.58 mmHg FINDINGS -------- Sinus rhythm. This was a technically good study. The left ventricular size is normal. There is borderline concentric left ventricular hypertrophy. Overall left ventricular systolic function is normal with, an EF between 60 - 65 %. The right ventricle is mildly enlarged. Normal LA size by volume 22+/-6 ml/m2. The right atrium is normal in size. Interatrial and interventricular septum intact. Aortic valve is trileaflet and is mildly thickened. There is mild aortic regurgitation. The mitral valve leaflets are mildly thickened. Mild mitral regurgitation is present. Mild tricuspid regurgitation present. There is mild pulmonary hypertension. The right ventricular systolic pressure, as measured by Doppler, is 37.58mmHg. Trace/mild (physiologic) pulmonic regurgitation. The aortic root size is normal. Normal inferior vena cava with normal inspiratory collapse consistent with estimated right atrial pre ssure of 5 mmHg. There is no pericardial effusion. CONCLUSIONS -------- 1. The left ventricular size is normal. 2. There is borderline concentric left ventricular hypertrophy. 3. Overall left ventricular systolic function is normal with, an EF between 60 - 65 %. 4. The right ventricle is mildly enlarged. 5. Normal LA size by volume 22+/-6 ml/m2. 6. Aortic valve is trileaflet and is mildly thickened. 7. There is mild aortic regurgitation. 8. The mitral valve leaflets are mildly thickened. 9. Mild mitral regurgitation is present. 10. Mild tricuspid regurgitation present. 11. There is mild pulmonary hypertension. 12. The right ventricular systolic pressure, as measured by Doppler, is 37.58mmHg. 13. Trace/mild (physiologic) pulmonic regurgitation. 14. There is no pericardial effusion. FARM CONSULTANT: Jessica Mckinney RDCS
--- NOTE | 2020-12-25 10:56 | P.PN ---
Subjective This is a 80-year-old male with a past medical history significant for prostate cancer. 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 We have been asked to see the patient in consultation for cardiac clearance. Patient is scheduled for left inguinal hernia repair today with Dr. Ley. Patient examined at the bedside. Ambulating in room without difficulty or complaints. Patient currently denies any chest pain or pressure or shortness of breath, or orthopnea or PND. EKG reveals sinus bradycardia with no signs of acute ischemia. Echocardiogram revealed EF of 6065%, RV is mildly enlarged, mild aortic regurgitation, mild mitral regurgitation, mild tricuspid regurgitation, mild pulmonary hypertension with a RVSP 37.5 mmHg. Blood pressure 111/67, heart rate 63, afebrile, maintaining saturations 97% on room air. Laboratory data reviewed WBC 9.7, hemoglobin 15.7, platelets 217. PHYSICAL EXAM: VITAL SIGNS: Reviewed. GENERAL: Well-developed in no acute distress. HEENT: Neck supple. No JVD LUNGS: Respirations even and unlabored. Lungs essentially clear to auscultation bilaterally. HEART: Regular rate and rhythm. S1 and S2 heard. ABDOMEN: Soft. Nondistended. Nontender. EXTREMITIES: Normal range of motion. No clubbing or cyanosis. Peripheral pulses intact. No lower extremity edema NEUROLOGIC: Awake and alert. Oriented x 3. ASSESSMENT: Left incarcerated inguinal hernia History of prostate cancer PLAN: Echocardiogram obtained and reviewed. Patient has no complaints of angina and clinically is euvolemic with no signs of congestive heart failure There are no absolute contraindications for patient to undergo surgery from a cardiac standpoint We will follow the patient as needed. Please reach out with any further questions or concerns. Nurse practitioner note has been reviewed by physician. Signing provider agrees with the documented findings, assessment, and plan of care. Objective - Vital Signs Vital signs: Vital Signs Temp 98.3 F 12/25/20 06:30 Pulse 63 12/25/20 06:30 Resp 16 12/25/20 06:30 BP 111/67 12/25/20 06:30 Pulse Ox 97 12/25/20 06:30 Intake & Output 12/24/20 12/25/20 12/25/20 18:59 06:59 18:59 Intake Total 1080 1020 Balance 1080 1020 Intake: Intake, IV Titration 780 Amount Sodium Chloride 0.9% 1, 780 000 ml @ 75 mls/hr IV . [id number] [facility] Rx#:[id number] Oral 1080 240 Other: Voiding Method Toilet Toilet # Voids 3 1 - Labs CBC & Chem 7: 12/25/20 07:23 12/23/20 11:46 Labs: Abnormal Lab Results - Last 24 Hours (Table) 12/25/20 Range/Units 07:23 Neutrophils # 7.9 H (1.3-7.7) k/uL Lymphocytes # 0.8 L (1.0-4.8) k/uL
[2020-12-25] MEDS ORDERED: MIDAZOLAM 2 MG/2 ML VIAL IVP ONE (13:17)
[2020-12-25] MEDS ORDERED: ONDANSETRON 4 MG/2 ML VIAL IVP ONE (14:20)
[2020-12-25] MEDS ORDERED: LACTATED RINGERS 1,000 ML IV ONE ×2 (14:20→17:38)
--- NOTE | 2020-12-25 15:16 | P.HPADDEND ---
H&P Addendum H&P Addendum Date: 12/25/20 Patient seen and evaluated. Patient completed his echo. Patient and family wishes to proceed with robotic left inguinal hernia repair. CODE status addressed including FULL CODE to proceed with operation. Will resume his full code with instructions after his procedure.
--- NOTE | 2020-12-25 15:34 | P.ANPRN ---
Procedure Note - Anesthesia - Nerve Block Performed Bilateral Erector Spinae Time Out Performed: Yes Date of Procedure: 12/25/20 (4777) Procedure Start Time: 15:15 Procedure Stop Time: 15:31 Location of Patient: PreOp Indication: Acute Post-Operative Pain, Dx/Pain Location (Bilateral groin) Specifically requested for management of pain by DrKayden: Linda Ley Sedation Type: Sedate with meaningful contact maintained Preparation: Sterile Prep Position: Prone Catheter: None Needle Types: Pajunk Needle Gauge: 21 Ultrasound used to visualize needle placement: Yes Ultrasound used to observe medication spread: Yes Injectate: 0.5% Ropivacaine (see comment for volume) (15 +15 cc) Blood Aspirated: No Pain Paresthesia on Injection Noted: No Resistance on Injection: Normal Image Stored and Saved: Yes Events: Uneventful and Well Tolerated
[2020-12-25] MEDS ORDERED: ePHEDrine SULFATE/0.9% NACL/PF 50 MG/5 ML SYRINGE IV ONE (15:57)
[2020-12-25] MEDS ORDERED: GLYCOPYRROLATE 0.2 MG/ML 2 ML VIAL ONE (15:57)
[2020-12-25] MEDS ORDERED: ROCURONIUM 10 MG/ML (5 ML VIAL) IV ONE (15:57)
[2020-12-25] MEDS ORDERED: fentaNYL (PF) 50 MCG/ML 2 ML AMP ONE (15:57)
[2020-12-25] MEDS ORDERED: HYDROmorphone (PF) 1 MG/ML ONE (15:57)
[2020-12-25] MEDS ORDERED: PROPOFOL 10 MG/ML 20 ML VIAL IV ONE (15:57)
[2020-12-25] MEDS ORDERED: SUCCINYLCHOLINE CHLORIDE 100 MG/5 ML SYR IV ONE (15:57)
[2020-12-25] MEDS ORDERED: PHENYLEPHRINE-0.9% NACL SYG 1,000 MCG/10 ML SYRINGE ONE (15:57)
[2020-12-25] MEDS ORDERED: NEOSTIGMINE 1 MG/ML 10 ML VIAL ONE (15:57)
[2020-12-25] MEDS ORDERED: LIDOCAINE 1% INJ 10MG/ML (20 ML MDV) ONE (15:57)
[2020-12-25] MEDS ORDERED: BUPIVACAINE (PF) 0.25% 30 ML VIAL SQ ONE (16:43)
--- NOTE | 2020-12-25 17:57 | P.OP ---
Date of Procedure: 12/25/20 Description of Procedure: SURGEON: MAX SANCHEZ MD PREOPERATIVE DIAGNOSES: 1. Incarcerated left inguinal hernia with small bowel obstruction, initial POSTOPERATIVE DIAGNOSES: 1. Incarcerated left inguinal hernia with small bowel obstruction, initial 2. Initial right inguinal hernia OPERATION: 1. Robotic-assisted da Lurdes Xi laparoscopic repair of initial incarcerated right direct inguinal hernia with mesh, 11.[address] 2. Robotic-assisted da Lurdes Xi laparoscopic repair of initial incarcerated left direct inguinal hernia with mesh, 11.[address] 3. Resection of incarcerated left inguinal lipoma, 4 cm x 1 cm ANESTHESIA: General with local anesthetic ESTIMATED BLOOD LOSS: 5 mL. SPECIMENS: 1. Incarcerated left inguinal hernia inguinal hernia 2. Right inguinal hernia sac COMPLICATIONS: None. FINDINGS: 1. Incarcerated initial left inguinal hernia, 2 cm indirect with incarcerated inguinal lipoma and small bowel reduced 2. Right inguinal hernia, 1 cm, indirect 3. 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 Appendix adhered to the right pelvis without appendicitis INDICATIONS: The patient is a 80-year-old gentleman who presented acutely with incarcerated left inguinal hernia. Cardiac risk assessment was obtained. Laparoscopic versus open and robotic approaches were discussed. Benefits and risks including bleeding, infection, injury to the vas deferens as well as sterility and chronic groin pain were reviewed. Placement of mesh was also described. Informed consent was obtained. DESCRIPTION: In the preoperative area, the patient was marked with indelible marker along the inguinal hernia. The patient was brought to the operating room and initially laid in supine position. The abdomen had been prepped and draped in standard sterile fashion. Ioban draping was also placed. Prior to incision, a timeout protocol was confirmed with surgical team regarding patient's name including procedures to be performed and location along the right groin. Initial positioning for the robotic assisted ports were selected whereby 20 cm superior to the target anatomy, 0 degree 5 mm laparoscopic trocar entry was performed at the left upper quadrant. The abdomen was insufflated to 15 mmHg which he had tolerated well. Diagnostic laparoscopy demonstrated no injury to bowel, viscera or mesentery. Bilateral inguinal hernias were identified indirect type. Incarcerated contents are found along the left groin reduced with pressure. Next, along the epigastrium, 8 mm robot trocar was placed. An 8-mm robotic trocar was placed under direct visualization at the right upper quadrant. An 8 mm port was placed at the left upper quadrant. All trocars were positioned between 10-cm apart from each other. The LiftMetrix XI robot was primed, draped, prepared for docking along upper abdomen of the patient. The patient was positioned 14 steep Trendelenburg position I then went to the LiftMetrix Xi console. The surveyor's assistant was at bedside for exchange of the robot arms and equipment. The left indirect inguinal hernia sac was evaginated whereby the peritoneum was scored using Endo scissors with cautery. Once completely reduced into the abdominal cavity, the peritoneal sac of the hernia was stripped. The sac was resected and then passed off for further pathological analysis. The size of the hernia defect was 2 cm with intraoperative films obtained. Lipoma with inguinal hernia sac 4 x 1 cm was resected. Using a nonabsorbable 2-0 VLOC, the peritoneal defect of the left inguinal hernia sites was closed using a running suture separately. The defect was found to be completely closed with complete reduction of the left direct inguinal hernia were confirmed. As an onlay, an 11.[address] mesh by Bard was initially cut in half and entered into the abdominal cavity via the 8 mm trocar. The mesh was tacked to the pelvis using nonabsorbable 2-0 VLOC 12-inch length sutures. Next, careful attention along the right groin demonstrated right inguinal hernia, 1 cm. The right inguinal hernia sac was evaginated whereby the peritoneum was scored using Endo scissors with cautery. The sac was resected and then passed off for further pathological analysis. The size of the hernia defect was 1 cm with intraoperative films obtained. Using a nonabsorbable 2-0 VLOC, the peritoneal defect of the right inguinal hernia site was closed using a running suture. The defect was found to be completely closed with complete reduction of the right direct inguinal hernia was confirmed. As an onlay, an 11.[address] mesh by Bard was initially cut in half and entered into the abdominal cavity via the 8 mm trocar. The mesh was tacked to the pelvis using nonabsorbable 2-0 VLOC 9-inch length sutures. The robot was undocked from the patient's bedside. I then rescrubbed into the case. Insufflation was released from the abdominal cavity and all instruments were removed from the abdominal cavity. The rest of incisions were reapproximated using 4-0 Monocryl in a running subcuticular fashion. Local anesthetic was placed along the incision including for a bilateral groin block. Incisions were cleansed using dilute hydrogen peroxide. Liquid glue was applied to the skin. At the end of the procedure, the needle, sponge and instrument counts had been verified correct by the instructor adjunct surgical technician. The patient had tolerated the procedure well and was taken to the postanesthesia care unit in stable condition.
[2020-12-25] MEDS: DOCUSATE 100 MG CAP PO SCH (22:05)
[2020-12-25] MEDS: HYDROmorphone 0.5 MG/0.5 ML SYRINGE IVP PRN (22:09)
[2020-12-26] MEDS: SODIUM CHLORIDE 0.9% 1,000 ML IV SCH (04:30)
[2020-12-26] MEDS: HYDROmorphone 0.5 MG/0.5 ML SYRINGE IVP PRN (04:33)
[2020-12-26 04:47] VITALS: RESP 18
[2020-12-26] MEDS: ACETAMINOPHEN TAB 325 MG TAB PO SCH ×2 (05:33→11:51)
[2020-12-26 07:48] VITALS: BP 114/64; PULSE 58; TEMP 98.6
[2020-12-26] MEDS: DOCUSATE 100 MG CAP PO SCH (07:54)
[2020-12-26] MEDS: TAMSULOSIN 0.4 MG CAP.ER.24H PO SCH (07:54)
[2020-12-26] MEDS: HEPARIN SODIUM,PORCINE/PF 5,000 UNIT/0.5 ML SYRINGE SQ SCH (07:54)
--- NOTE | 2020-12-26 10:22 | P.PN ---
Subjective Progress Note Date: 12/26/20 Hospital course: Patient is a very pleasant 80-year-old male with a past medical history of prostate cancer status post radiation seed implant and presented to the emergency department on 12/23/20 with a chief complaint of left lower quadrant abdominal pain which reportedly started approximately 6 months ago waxing and waning and progressively worsening until it became very sharp and severe resulting in him seeking medical treatment. In the emergency department patient was seen and fully evaluated. He had a CT abdomen and pelvis which revealed an incarcerated left inguinal hernia with adjacent dilated small bowel loops suggestive of partial small bowel obstruction. Patient admitted under Gen. surgery and we have been consulted for continued medical management. Patient underwent surgical repair of his incarcerated left inguinal hernia yesterday afternoon. Physical exam: Patient was seen and fully evaluated at the bedside this morning. Patient is postoperative day 1 today. He is doing well and denies having any nausea or vomiting. Reports mild postsurgical discomfort but states his abdomen feels s ignificantly better. Patient tolerating oral intake, urinating without difficulties, and reports last bowel movement was yesterday afternoon. Morning labs unremarkable and vital signs stable. Patient medically clear for discharge once cleared by general surgery. Vital signs reviewed and stable. General: Nontoxic, no distress and appears stated age. Derm: Skin warm and dry, normal coloration for ethnicity. Head: Atraumatic, normocephalic and symmetric. Eyes: EOMs intact, no lid lag, and anicteric sclera Mouth: no lip lesions, mucus membranes moist Cardiovascular: regular rate and rhythm with normal S1S2, no murmur, positive posterior tibial pulses bilaterally, and cap refill < 2 seconds. Lungs: Respirations even, regular, and unlabored on room air. Lungs CTA bilaterally, no rhonchi, no rales, no wheezing, and no accessory muscle usage. Abdominal: soft, tenderness reported to left lower quadrant and suprapubic/lower umbilical region upon palpation, no guarding, no appreciable organomegaly Ext: ROM intact. No gross muscle atrophy, no edema, no contractures Neuro: Speech clear, face symmetrical and CN II-XII grossly intact with no noted focal neuro deficits Psych: Alert and oriented to person, place, time, and situation. Appropriate and pleasant affect. Assessment and Plan of Care: Left inguinal incarcerated hernia with partial small bowel obstruction -Management per primary admitting general surgery team, plans for surgical intervention later this afternoon with Dr. Cruz. -Symptomatic treatment and pain management. Asymptomatic sinus bradycardia -Continuous telemetry monitoring -Echocardiogram showing normal EF between 60-65% with mild pulmonary hypertension, no significant valvular disorders reported. -Cardiology following. -TSH 2.150. Unintentional weight loss -Patient reports following with PCP regularly for checkups. -Patient states Up to date on cancer screening with colonoscopy completed 5 years prior with reports of normal findings -We will consult nutrition services once pt is cleared by general surgery to resume diet. -TSH normal findings at 2.150. Thank you for allowing us to participate in the care of this pleasant patient. Do not hesitate to contact us with questions. Someone can be reached from the [facility] hospitalist group all hours of the day at [phone] or via [employer]. Objective - Vital Signs Vital signs: Vital Signs Temp 98.6 F 12/26/20 07:46 Pulse 58 L 12/26/20 07:55 Resp 18 12/26/20 07:55 BP 114/64 12/26/20 07:46 Pulse Ox 95 12/26/20 07:46 Intake & Output 12/25/20 12/26/20 12/26/20 18:59 06:59 18:59 Intake Total 1150 750 Output Total 5 225 Balance 1145 525 Intake: IV 1150 100 Intake, IV Titration 650 Amount Sodium Chloride 0.9% 1, 650 000 ml @ 75 mls/hr IV . [id number] [facility] Rx#:[id number] Output: Urine 225 Estimated Blood Loss 5 Other: Voiding Method Toilet Urinal # Voids 2 2 - Labs CBC & Chem 7: 12/26/20 07:27 12/23/20 11:46
[2020-12-26 11:03] LABS: HCT 43.2 % (39.6-50.0); HGB 14.4 g/dL (13.0-17.0); MCH 32.7 pg (27.0-32.0); MCHC 33.3 g/dL (32.0-37.0); Mean Platelet Volume 10.2 fL (9.5-12.2); Platelet Count 208 X 10*3/uL (140-440); RBC 4.41 X 10*6/uL (4.40-5.60); RDW 12.9 % (11.5-14.5); WBC 7.71 X 10*3/uL (4.50-10.00)
--- NOTE | 2020-12-26 11:51 | P.DS ---
<Eunice Gaston - Last Filed: 12/26/20 11:49> Providers Expected date of discharge: 12/26/20 Hospital Course: Discharge diagnosis 1. Incarcerated left inguinal hernia with small bowel obstruction, initial 2. Initial right inguinal hernia Hospital course The patient is a 80-year-old gentleman who presented acutely with incarcerated left inguinal hernia. Cardiac risk assessment was obtained. Patient is status post Robotic-assisted da Lurdes Xi laparoscopic repair of initial incarcerated r ight direct inguinal hernia with mesh, Robotic-assisted da Lurdes Xi laparoscopic repair of initial incarcerated left direct inguinal hernia with mesh and Resection of incarcerated left inguinal lipoma, 4 cm x 1 cm. patient tolerated surgery well. His pain is controlled. He is tolerating diet. He is having flatus. He is up and ambulating. He is afebrile. He is stable for discharge. Please refer to chart for any further details. Physician Supervisor [employer] note has been reviewed by physician. Signing provider agrees with the documented findings, assessment, and plan of care. Patient Condition at Discharge: Stable Plan - Discharge Summary Discharge Rx Participant: Yes New Discharge Prescriptions: New Tamsulosin [Flomax] 0.4 mg PO PC-BRKFST 30 Days #30 cap.er.24h Docusate [Colace] 100 mg PO BID #30 capsule Acetaminophen Tab [Tylenol Tab] 650 mg PO Q4H PRN #30 tablet PRN Reason: Pain Continue Magnesium 250 mg PO DAILY Cholecalciferol [Vitamin D3 (25 Mcg = 1000 Iu)] 50 mcg PO DAILY Aspirin EC [Ecotrin Low Dose] 81 mg PO DAILY Discontinued Glucosam/Ras-Msm1/C/Atul/Bosw [Glucosamine-Chondroitin Tablet] 1 tab PO BID Discharge Medication List Aspirin EC [Ecotrin Low Dose] 81 mg PO DAILY 12/23/20 [History] Cholecalciferol [Vitamin D3 (25 Mcg = 1000 Iu)] 50 mcg PO DAILY 12/23/20 [History] Magnesium 250 mg PO DAILY 12/23/20 [History] Acetaminophen Tab [Tylenol Tab] 650 mg PO Q4H PRN #30 tablet 12/26/20 [Rx] Docusate [Colace] 100 mg PO BID #30 capsule 12/26/20 [Rx] Tamsulosin [Flomax] 0.4 mg PO PC-BRKFST 30 Days #30 cap.er.24h 12/26/20 [Rx] Follow up Appointment(s)/Referral(s): Avila Wang MD [Primary Care Provider] - 12/28/20 10:00 am Linda Ley MD [STAFF PHYSICIAN] - 01/04/21 1:15 pm Patient Instructions/Handouts: Inguinal Hernia (DC) Activity/Diet/Wound Care/Special Instructions: No lifting over 4 pounds in 4 weeks Jan 15 You May shower. No bath tub soaks for two weeks Jan 08 Use Tylenol scheduled for the next 24-48 hours for best pain relief. Use ice along incisions for the today to prevent swelling. Discharge Disposition: HOME SELF-CARE <Linda Ley - Last Filed: 12/26/20 22:23> Providers Date of admission: 12/23/20 14:13 Attending physician: Linda Ley Consults: 12/23/20 14:27 Consult Physician Urgent Consulting Provider: Jessy Bentley Consult Reason/Comments: Cardiac clearance, bradycardia Do you want consulting provider notified?: Yes 12/23/20 17:02 Consult Physician Routine Consulting Provider: Sia Carter Consult Reason/Comments: Medical management, unexplained weight loss Do you want consulting provider notified?: Yes 12/24/20 16:17 Consult Physician Routine Consulting Provider: [facility] Consult Reason/Comments: Regional block Do you want consulting provider notified?: Yes Primary care physician: Avila Wang MD - Discharge Diagnosis(es) (1) Incarcerated left inguinal hernia Status: Acute (2) Small bowel obstruction Status: Acute (3) Bradycardia Status: Acute (4) Intentional weight loss Status: Acute (5) BMI between 19-24,adult Status: Acute Hospital Course: As above. The patient is an 80 year old female who presented with acute incarcerated left inguinal hernia. He underwent robotic bilateral inguinal hernia repair without sequelae. His pain was well controlled. He was hemodynamically stable prior to discharge. Procedures: OPERATION: 1. Robotic-assisted da Lurdes Xi laparoscopic repair of initial incarcerated right direct inguinal hernia with mesh, 11.[address] 2. Robotic-assisted da Lurdes Xi laparoscopic repair of initial incarcerated left direct inguinal hernia with mesh, 11.[address] 3. Resection of incarcerated left inguinal lipoma, 4 cm x 1 cm ANESTHESIA: General with local anesthetic ESTIMATED BLOOD LOSS: 5 mL. SPECIMENS: 1. Incarcerated left inguinal hernia inguinal hernia 2. Right inguinal hernia sac COMPLICATIONS: None. FINDINGS: 1. Incarcerated initial left inguinal hernia, 2 cm indirect with incarcerated inguinal lipoma and small bowel reduced 2. Right inguinal hernia, 1 cm, indirect 3. 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 Appendix adhered to the right pelvis without appendicitis
[2020-12-26 13:58] LABS: African American GFR (CKD) 103.3 (60.0-200.0); BUN/Creat Ratio 15.71 Ratio (12.00-20.00); Calcium 8.2 mg/dL (8.7-10.3); Magnesium 1.6 mg/dL (1.5-2.4); Non-African American GFR(CKD) 89.1 (60.0-200.0); Potassium 3.9 mmol/L (3.5-5.5)
== END 2020-12-26 13:28 | disposition home or self-care (01) | DRG 352 ==
LOC: EC 11:09 → 4SSUR 14:13
PROVIDERS: ADMIT Surgery Plastic and Reconstructive Surgery; ATTEND Surgery Plastic and Reconstructive Surgery
PROC: 0JBC3ZZ Excision of Pelvic Region Subcutaneous Tissue and Fascia, Percutaneous Approach (ICD-10-PCS; principal; 2020-12-25 07:30)
PROC: 0YUA4JZ Supplement Bilateral Inguinal Region with Synthetic Substitute, Percutaneous Endoscopic Approach (ICD-10-PCS; principal; 2020-12-25 07:30)
PROC: 8E0W4CZ Robotic Assisted Procedure of Trunk Region, Percutaneous Endoscopic Approach (ICD-10-PCS; principal; 2020-12-25 07:30)
DX: K40.00 Bilateral inguinal hernia, with obstruction, without gangrene, not specified as recurrent (principal); I27.20 Pulmonary hypertension, unspecified; K66.0 Peritoneal adhesions (postprocedural) (postinfection); R00.1 Bradycardia, unspecified; D17.79 Benign lipomatous neoplasm of other sites; Z79.82 Long term (current) use of aspirin; Z79.899 Other long term (current) drug therapy; Z85.46 Personal history of malignant neoplasm of prostate; Z92.3 Personal history of irradiation
CPT/HCPCS: 36415; 74177; 80048; 80053; 81003; 82150; 83605; 83690; 83735; 84443; 85025; 85027; 85610; 85730; 88302; 93005; 93306; 96361; 96374; 96375; 99285

== ENCOUNTER 2021-01-31 08:38 | Day surgery (SDC) | payer MEDICARE ==
[2021-01-26 12:39] VITALS: BMI 19.3
[~2021-01-31 08:38] MED LIST: LACTATED RINGERS 1,000 ML IV SCH
[2021-01-31 08:59] VITALS: TEMP 97.8
[2021-01-31] MEDS ORDERED: LACTATED RINGERS 1,000 ML IV ONE (09:01)
[2021-01-31] MEDS ORDERED: PROPOFOL 10 MG/ML 20 ML VIAL IV ONE (10:06)
--- NOTE | 2021-01-31 10:09 | P.GSHP ---
History of Present Illness H&P Date: 01/31/21 CHIEF COMPLAINT: Colon screen HISTORY OF PRESENT ILLNESS: The patient is a 80-year-old male who presents for colon screen. Lower endoscopy was offered for further evaluation and management. PAST MEDICAL HISTORY: Please see list. PAST SURGICAL HISTORY: Please see list. MEDICATIONS: Please see list. ALLERGIES: Please see list. SOCIAL HISTORY: No illicit drug use FAMILY HISTORY: No reports of Crohn disease or ulcerative colitis. REVIEW OF ORGAN SYSTEMS: CONSTITUTIONAL: No reports of fevers or chills. PHYSICAL EXAM: VITAL SIGNS: Stable GENERAL: Well-developed pleasant in no acute distress. HEENT: No scleral icterus. Extraocular movements grossly intact. Moist buccal mucosa. NECK: Supple without lymphadenopathy. CHEST: Unlabored respirations. Equal bilateral excursions. CARDIOVASCULAR: Regular rate and rhythm. Distal 2+ pulses. ABDOMEN: Soft, nontender, nondistended. MUSCULOSKELETAL: No clubbing, cyanosis, or edema. ASSESSMENT: 1. Colon screen. PLAN: 1. Recommend proceeding with a lower endoscopy Past Medical History Past Medical History: Cancer, Prostate Disorder Additional Past Medical History / Comment(s): prostate cancer, seed implant. WEIGHT LOSS History of Any Multi-Drug Resistant Organisms: None Reported Past Surgical History: Hernia Repair Additional Past Surgical History / Comment(s): COLONOSCOPY Past Anesthesia/Blood Transfusion Reactions: No Reported Reaction Smoking Status: Former smoker - Past Family History Family Family Medical History: No Reported History Medications and Allergies Home Medications Medication Instructions Recorded Confirmed Type Aspirin EC [Ecotrin Low Dose] 81 mg PO DAILY 12/23/20 01/26/21 History Cholecalciferol [Vitamin D3 (25 50 mcg PO DAILY 12/23/20 01/26/21 History Mcg = 1000 Iu)] Magnesium 250 mg PO DAILY 12/23/20 01/26/21 History Glucosamine Sulfate 1,000 mg PO DAILY 01/26/21 01/26/21 History Allergies Allergy/AdvReac Type Severity Reaction Status Date / Time No Known Allergies Allergy Verified 01/26/21 12:31 Surgical - Exam Vital Signs Temp Pulse Resp BP Pulse Ox 97.8 F 49 L 18 142/80 98 01/31/21 08:58 01/31/21 08:58 01/31/21 08:58 01/31/21 08:58 01/31/21 08:58
--- NOTE | 2021-01-31 10:34 | P.PCN ---
Date of Procedure: 01/31/21 Description of Procedure: PREOPERATIVE DIAGNOSIS: Family history colon polyps Personal history colon polyps Colonoscopy screening. POSTOPERATIVE DIAGNOSIS: Family history colon polyps Personal history colon polyps Colonoscopy screening. Sigmoid diverticulosis with stricture OPERATION: Colonoscopy to the cecum, ileocecal valve and appendiceal orifice. SURGEON: Linda Ley MD. ANESTHESIA: MAC. INDICATIONS: The patient is a 80-year-old male who presents for colonoscopy screening. Last colonoscopy 5 years ago. Benefits and risks were described and informed consent was obtained. DESCRIPTION OF PROCEDURE: The patient had undergone Sutab prep. The patient had been brought into the operating room and laid in the left lateral decubitus position. After adequate intravenous sedation, the rectum was examined with 2% lidocaine jelly. No external hemorrhoids were encountered. The prostate fossa was full and no nodularity was identified. The rectal tone was within normal limits. No lesions were palpated in the rectal vault. An Olympus colonoscope was advanced until the cecum, ileocecal valve and appendiceal orifice were clearly viewed. The prep was excellent. Moderate to severe sigmoid diverticulosis with stricture was identified between 10 and 20 cm from the anal verge. No colonic polyps were found. No evidence of focal colitis was found. Retroflexion of the scope demonstrated grade 1 internal hemorrhoids without active bleeding or inflammation. The colon was desufflated. The patient had tolerated the procedure well. Withdrawal time was over 6 minutes. FINDINGS: Aronchick preparation quality scale 1 (1-5) Internal hemorrhoids, grade 1 No external prolapsed hemorrhoids. No arteriovenous malformations. No adenomatous polyps. No focal colitis. Moderate to severe sigmoid diverticulosis with stricture was identified between 10 and 20 cm from the anal verge. RECOMMENDATIONS: Lower endoscopy or Cologaurd in 5 years 2025 Plan - Discharge Summary Discharge Rx Participant: No New Discharge Prescriptions: Continue Magnesium 250 mg PO DAILY Cholecalciferol [Vitamin D3 (25 Mcg = 1000 Iu)] 50 mcg PO DAILY Aspirin EC [Ecotrin Low Dose] 81 mg PO DAILY Glucosamine Sulfate 1,000 mg PO DAILY Discharge Medication List Aspirin EC [Ecotrin Low Dose] 81 mg PO DAILY 12/23/20 [History] Cholecalciferol [Vitamin D3 (25 Mcg = 1000 Iu)] 50 mcg PO DAILY 12/23/20 [History] Magnesium 250 mg PO DAILY 12/23/20 [History] Glucosamine Sulfate 1,000 mg PO DAILY 01/26/21 [History] Follow up Appointment(s)/Referral(s): Linda Ley MD [STAFF PHYSICIAN] - As Needed Patient Instructions/Handouts: *Surgery [facility] - (Anesthesia) Endoscopy Discharge Instructions Activity/Diet/Wound Care/Special Instructions: Recommend Cologaurd or colonoscopy in 5 years, 2025 Discharge Disposition: HOME SELF-CARE
[2021-01-31 10:37] VITALS: BP 111/68; PULSE 50; RESP 12
== END 2021-01-31 11:09 | disposition home or self-care (01) ==
LOC: ORWHC2ENDO 08:38
PROVIDERS: ATTEND Surgery Plastic and Reconstructive Surgery
DX: Z12.11 Encounter for screening for malignant neoplasm of colon (principal); K57.90 Diverticulosis of intestine, part unspecified, without perforation or abscess without bleeding; Z86.010 Personal history of colon polyps; Z83.71 Family history of colonic polyps; K64.8 Other hemorrhoids; Z85.46 Personal history of malignant neoplasm of prostate; Z87.891 Personal history of nicotine dependence; Z79.899 Other long term (current) drug therapy; Z79.82 Long term (current) use of aspirin
CPT/HCPCS: J2704; G0105

== ENCOUNTER → 2021-06-25 | Outpatient (CLI) | payer MEDICARE ==
[2021-06-25 16:45] LABS: Thyroid Peroxidase Antibodies 9.6 U/mL (0.0-33.0)
== END | disposition home or self-care (01) ==
LOC: LABWHC1 08:14
PROVIDERS: ATTEND Internal Medicine
DX: E03.8 Other specified hypothyroidism (principal)
CPT/HCPCS: 36415; 84443; 84480; 86376; 86800

== ENCOUNTER 2022-05-30 05:26 | Emergency (ER) | payer MEDICARE ==
[2022-05-30 05:34] VITALS: RESP 18; TEMP 97.4
--- NOTE | 2022-05-30 05:40 | ED ---
Male Urogenital HPI - General Chief complaint: Urogenital Stated complaint: Urogenital Time Seen by Provider: 05/30/22 05:40 Source: patient, RN notes reviewed, old records reviewed Mode of arrival: ambulatory Limitations: no limitations - History of Present Illness Initial comments: This is an 81-year-old male to the ER for evaluation today. Patient presenting with complaint of severe severe abdominal pain. Patient states he noticed that since last night he has been unable to urinate has not urinated resulting in severe pain. Patient has history of prostate disease. Also noted some blood in his urine yesterday as well. No trauma no recent surgery no blood thinners no other complaints MD Complaint: other (hematuria, severe pain) -: hour(s) Location: abdomen Radiation: none Severity: severe Severity scale (1-10): 10 Quality: sharp Consistency: constant Improves with: none Worsens with: none indwelling catheter (prior history of , prostate CA) Reports: urinary retention, blood in urine, nausea/vomiting - Related Data Home Medications Medication Instructions Recorded Confirmed Aspirin EC [Ecotrin Low Dose] 81 mg PO DAILY 12/23/20 01/26/21 Cholecalciferol [Vitamin D3 (25 50 mcg PO DAILY 12/23/20 01/26/21 Mcg = 1000 Iu)] Magnesium 250 mg PO DAILY 12/23/20 01/26/21 Glucosamine Sulfate 1,000 mg PO DAILY 01/26/21 01/26/21 Previous Rx's Medication Instructions Recorded Amoxic-Pot Clav 875-125Mg 1 tab PO Q12HR 7 Days #14 tab 05/30/22 [Augmentin 875-125] Cephalexin [Keflex] 500 mg PO Q6HR #28 cap 05/30/22 Allergies Allergy/AdvReac Type Severity Reaction Status Date / Time No Known Allergies Allergy Verified 05/30/22 18:52 Review of Systems ROS Statement: Those systems with pertinent positive or pertinent negative responses have been documented in the HPI. ROS Other: All systems not noted in ROS Statement are negative. Past Medical History Past Medical History: Cancer, Prostate Disorder Additional Past Medical History / Comment(s): prostate cancer, seed implant History of Any Multi-Drug Resistant Organisms: None Reported Past Surgical History: No Surgical Hx Reported Additional Past Surgical History / Comment(s): COLONOSCOPY Past Anesthesia/Blood Transfusion Reactions: No Reported Reaction Past Psychological History: No Psychological Hx Reported Smoking Status: Never smoker Past Alcohol Use History: None Reported Past Drug Use History: None Reported - Past Family History Family Family Medical History: No Reported History General Exam Limitations: no limitations General appearance: alert, in no apparent distress, anxious Head exam: Present: atraumatic, normocephalic, normal inspection Eye exam: Present: normal appearance, PERRL, EOMI. Absent: scleral icterus, conjunctival injection, periorbital swelling ENT exam: Present: normal exam, mucous membranes moist Neck exam: Present: normal inspection. Absent: tenderness, meningismus, lymphadenopathy Respiratory exam: Present: normal lung sounds bilaterally. Absent: respiratory distress, wheezes, rales, rhonchi, stridor Cardiovascular Exam: Present: regular rate, normal rhythm, normal heart sounds. Absent: systolic murmur, diastolic murmur, rubs, gallop, clicks GI/Abdominal exam: Present: soft, distended, tenderness, guarding, normal bowel sounds. Absent: rebound, rigid Extremities exam: Present: normal inspection, full ROM, normal capillary refill. Absent: tenderness, pedal edema, joint swelling, calf tenderness Back exam: Present: normal inspection Neurological exam: Present: alert, oriented X3, CN II-XII intact Psychiatric exam: Present: normal affect, normal mood Skin exam: Present: warm, dry, intact, normal color. Absent: rash Course Vital Signs 05/30/22 05/30/22 05:31 06:57 Temperature 97.4 F L Pulse Rate 87 84 Respiratory 18 18 Rate Blood Pressure 134/87 126/68 O2 Sat by Pulse 96 98 Oximetry - Reevaluation(s) Reevaluation #1: 05/31/22 Medical record is reviewed Reevaluation #2: 05/31/22 Patient symptoms resolved after Leon placement here in the ER Reevaluation #3: 05/31/22 Patient informed of results questions answered Reevaluation #4: 05/31/22 Differential Abdominal Pain Men: Appendicitis, cholecystitis, diverticulosis, ischemic bowel, pancreatitis, hepatitis, UTI, gastroenteritis, AAA, incarcerated hernia, bowel obstruction, constipation, inflammatory bowel, hepatitis, peptic ulcer disease, splenic infarction, perforated viscus, testicular torsion, this is not meant to be an all-inclusive list Reevaluation #5: 05/31/22 Was pt. sent in by a medical professional or institution? @ -no Did you speak to anyone other than the patient for history? @ -no Did you review nursing and triage notes? @ -agree Were old charts reviewed? @ -no Differential Diagnosis? @ -prior EKG interpreted by me (3pts min.)? @ -[none] X-rays interpreted by me (1pt min.)? @ -[none] CT interpreted by me (1pt min.)? @ -[none] U/S interpreted by me (1pt. min.)? @ -bedside bladder scan What testing was considered but not performed? (CT, X-rays, U/S, labs)? Why? @ no What meds were considered but not given? Why? @ -[none] Did you discuss the management of the patient with other professionals? @ -no Did you reconcile home meds? @ -[none] Was smoking cessation discussed for >3mins.? @ -[none] Was critical care preformed (if so, how long)? @ -[none] Were there social determinants of health that impacted care today? How? (Homelessness, low income, unemployed, alcoholism, drug addiction, transportation, low edu. Level, literacy, decrease access to med. care, intermediate, rehab)? @ -no Was there de-escalation of care discussed even if they declined? (Discuss DNR or withdrawal of care, Hospice)? @ -no What co-morbidities impacted this encounter? (DM, HTN, Smoking, COPD, CAD, Cancer, CVA, Hep., AIDS, mental health diagnosis, sleep apnea, morbid obesity)? @ -no Was patient admitted / discharged? @ -dc Undiagnosed new problem with uncertain prognosis? @ -[none] Drug Therapy requiring intensive monitoring for toxicity (Heparin, Nitro, Insulin, Cardizem)? @ -[none] Were any procedures done? @ -[none] Diagnosis/symptom? @ -[default] Acute, or Chronic, or Acute on Chronic? @ -[default] Uncomplicated (without systemic symptoms) or Complicated (systemic symptoms)? @ -[default] Side effects of treatment? @ -[none] Exacerbation, Progression, or Severe Exacerbation] @ -[no] Poses a threat to life or bodily function? @ -[no] Medical Decision Making - Medical Decision Making 81 male to the emergency department for evaluation. Patient does have significant hematuria with urinary retention Leon is placed with resolution. Patient has no current complaints no abdominal pain can be discharged home - Lab Data Lab Results 05/30/22 Range/Units 05:55 Urine Color Dark Red Urine Appearance Bloody (Clear) Urine RBC >182 H (0-5) /hpf Urine WBC 80 H (0-5) /hpf Urine Bacteria Moderate H (None) /hpf Disposition Clinical Impression: Acute retention of urine Disposition: HOME SELF-CARE Condition: Good Instructions (If sedation given, give patient instructions): Urinary Retention in Men (ED) Prescriptions: Amoxic-Pot Clav 875-125Mg [Augmentin 875-125] 1 tab PO Q12HR 7 Days #14 tab Cephalexin [Keflex] 500 mg PO Q6HR #28 cap Is patient prescribed a controlled substance at d/c from ED?: No Referrals: Guille Bates MD [Primary Care Provider] - 1-2 days Connor Adames MD [STAFF PHYSICIAN] - 1-2 days Time of Disposition: 06:00
[2022-05-30] MEDS ORDERED: AMPICILLIN-SULBACTAM 3 GM in SODIUM CHLORIDE 0.9% 100 ML IVPB STA (06:01)
[2022-05-30] MEDS ORDERED: AMOXIC-POT CLAV 875MG STARTER PACK 2 TAB BTL PO STA (06:02)
[2022-05-30 06:19] LABS: Bacteria,Urine Moderate /hpf; RBC,Urine >182 /hpf (0-5); WBC,Urine 80 /hpf (0-5)
[2022-05-30 06:20] LABS: Appearance,Urine Bloody (Clear)
[2022-05-30 06:21] LABS: Color,Urine Dark Red
[2022-05-30] MEDS ORDERED: CEPHALEXIN 500MG STARTER PACK 4 CAP BTL PO STA (06:27)
[2022-05-30] MEDS ORDERED: CEPHALEXIN 500 MG CAP PO STA (06:27)
[2022-05-30 06:58] VITALS: BP 126/68; PULSE 84
== END 2022-05-30 06:58 | disposition home or self-care (01) ==
LOC: EC 05:26 → SUPCPDRO 05:26 → EC 06:58
DX: R33.9 Retention of urine, unspecified (principal); Z79.82 Long term (current) use of aspirin
CPT/HCPCS: 51702; 51798; 81001; 87086; 99284

== ENCOUNTER 2022-05-30 18:26 | Emergency (ER) | payer MEDICARE ==
[2022-05-30 18:52] VITALS: BP 127/80; PULSE 80; RESP 20; TEMP 98.2
[2022-05-30] MEDS ORDERED: LIDOCAINE 2% URO-JET JELLY 5 ML KIT URETHRAL ONE (20:30)
--- NOTE | 2022-05-30 20:36 | ED ---
Recheck HPI - General Chief Complaint: Recheck/Abnormal Lab/Rx Stated Complaint: Revisit - Catheter Issues Time Seen by Provider: 05/30/22 19:33 Source: patient Mode of arrival: ambulatory Limitations: no limitations - History of Present Illness Initial Comments: Patient is an 81-year-old male presenting with chief complaint of urinary catheter complications. Patient had a Leon catheter placed this morning here in the ER due to urinary retention. He states that throughout the day he has noticed blood draining, and all the catheter is not draining. He also states that it has been sliding in and out. He has not adjusted the catheter himself. He admits to some pelvic pressure due to urine being unable to drain. No fever, chills, nausea, vomiting, flank pain, chest pain, difficulty breathing, dizziness. - Related Data Home Medications Medication Instructions Recorded Confirmed Aspirin EC [Ecotrin Low Dose] 81 mg PO DAILY 12/23/20 01/26/21 Cholecalciferol [Vitamin D3 (25 50 mcg PO DAILY 12/23/20 01/26/21 Mcg = 1000 Iu)] Magnesium 250 mg PO DAILY 12/23/20 01/26/21 Glucosamine Sulfate 1,000 mg PO DAILY 01/26/21 01/26/21 Previous Rx's Medication Instructions Recorded Amoxic-Pot Clav 875-125Mg 1 tab PO Q12HR 7 Days #14 tab 05/30/22 [Augmentin 875-125] Cephalexin [Keflex] 500 mg PO Q6HR #28 cap 05/30/22 Allergies Allergy/AdvReac Type Severity Reaction Status Date / Time No Known Allergies Allergy Verified 05/30/22 18:52 Review of Systems ROS Statement: Those systems with pertinent positive or pertinent negative responses have been documented in the HPI. ROS Other: All systems not noted in ROS Statement are negative. Past Medical History Past Medical History: Cancer, Prostate Disorder Additional Past Medical History / Comment(s): prostate cancer, seed implant History of Any Multi-Drug Resistant Organisms: None Reported Past Surgical History: No Surgical Hx Reported Additional Past Surgical History / Comment(s): COLONOSCOPY Past Anesthesia/Blood Transfusion Reactions: No Reported Reaction Past Psychological History: No Psychological Hx Reported Smoking Status: Never smoker Past Alcohol Use History: None Reported Past Drug Use History: None Reported - Past Family History Family Family Medical History: No Reported History General Exam Limitations: no limitations General appearance: alert, in no apparent distress Head exam: Present: atraumatic, normocephalic, normal inspection Eye exam: Present: normal appearance Neck exam: Present: normal inspection Respiratory exam: Present: normal lung sounds bilaterally. Absent: respiratory distress, wheezes, rales, rhonchi, stridor Cardiovascular Exam: Present: regular rate, normal rhythm, normal heart sounds. Absent: systolic murmur, diastolic murmur, rubs, gallop, clicks GI/Abdominal exam: Present: soft. Absent: distended, tenderness, guarding, rebound, rigid Neurological exam: Present: alert, oriented X3, CN II-XII intact Psychiatric exam: Present: normal affect, normal mood Skin exam: Present: warm, dry, intact, normal color. Absent: rash Course Vital Signs 05/30/22 18:49 Temperature 98.2 F Pulse Rate 80 Respiratory 20 Rate Blood Pressure 127/80 O2 Sat by Pulse 97 Oximetry Medical Decision Making - Medical Decision Making Was pt. sent in by a medical professional or institution (, PA, IT COMPLIANCE MANAGER, urgent care, hospital, or senior living...) When possible be specific @ -[No] Did you speak to anyone other than the patient for history (EMS, parent, family, police, friend...)? What history was obtained from this source @ -[No] Did you review nursing and triage notes (agree or disagree)? Why? @ -[I reviewed and agree with nursing and triage notes] Were old charts reviewed (outside hosp., previous admission, EMS record, old EKG, old radiological studies, urgent care reports/EKG's, senior living records)? Report findings @ -[No old charts were reviewed] Differential Diagnosis (chest pain, altered mental status, abdominal pain women, abdominal pain men, vaginal bleeding, weakness, fever, dyspnea, syncope, headache, dizziness, GI bleed, back pain, seizure, CVA, palpatations, mental health)? @ -[not applicable] EKG interpreted by me (3pts min.). @ -[As above] X-rays interpreted by me (1pt min.). @ -[None done] CT interpreted by me (1pt min.). @ -[None done] U/S interpreted by me (1pt. min.). @ -[None done] What testing was considered but not performed or refused? (CT, X-rays, U/S, labs)? Why? @ -[None] What meds were considered but not given or refused? Why? @ -[None] Did you discuss the management of the patient with other professionals (professionals i.e. , EL, IT COMPLIANCE MANAGER, lab, RT, psych nurse, social media marketing manager, investment executive, teacher, hazard mitigation officer, bilingual case manager)? Give summary @ -[No] Was smoking cessation discussed for >3mins.? @ -[No] Was critical care preformed (if so, how long)? @ -[No] Were there social determinants of health that impacted care today? How? (Homelessness, low income, unemployed, alcoholism, drug addiction, transportation, low edu. Level, literacy, decrease access to med. care, assisted, rehab)? @ -[No] Was there de-escalation of care discussed even if they declined (Discuss DNR or withdrawal of care, Hospice)? DNR status @ -[No] What co-morbidities impacted this encounter? (DM, HTN, Smoking, COPD, CAD, Cancer, CVA, ARF, Chemo, Hep., AIDS, mental health diagnosis, sleep apnea, morbid obesity)? @ -[None] Was patient admitted / discharged? Hospital course, mention meds given and route, prescriptions, significant lab abnormalities, going to OR and other pertinent info. @ -Patient is an 81-year-old male presenting with chief complaint of urinary catheter complications. His catheter is not draining and has feliz blood in the bag. He also states that it has been sliding in and out. On physical examination blood and clots are noted in the back, he has some mild pressure due to urinary retention. Nursing staff replace Leon catheter, was able to irrigate it and noted several clots during irrigation. Bag was draining. El sue has an appointment with Dr. Arriola in the morning. I encouraged him that follow-up is of utmost importance. Follow-up with PCP. Report back to ER with any new or worsening symptoms. Discussed return parameters and answered all questions. Patient conveyed verbal understanding and agreed to the plan. I discussed this case in detail with my attending Dr. Ruelas Undiagnosed new problem with uncertain prognosis? @ -[No] Drug Therapy requiring intensive monitoring for toxicity (Heparin, Nitro, Insulin, Cardizem)? @ -[No] Were any procedures done? @ -[No] Diagnosis/symptom? @ -Urinary catheter complication Acute, or Chronic, or Acute on Chronic? @ -Acute Uncomplicated (without systemic symptoms) or Complicated (systemic symptoms)? @ -Uncomplicated Side effects of treatment? @ -[No] Exacerbation, Progression, or Severe Exacerbation? @ -[No] Poses a threat to life or bodily function? How? (Chest pain, [place], [place], pneumonia, PE, COPD, DKA, ARF, appy, cholecystitis, CVA, Diverticulitis, Homicidal, Suicidal, threat to staff... and all critical care pts) @ -[No] Disposition Clinical Impression: Complication of Leon catheter Disposition: HOME SELF-CARE Condition: Good Instructions (If sedation given, give patient instructions): Leon Catheter Placement and Care (ED) Additional Instructions: Follow-up at scheduled appointment with Dr. Arriola tomorrow. Report back to ER with any new or worsening symptoms. Is patient prescribed a controlled substance at d/c from ED?: No Referrals: Guille Bates MD [Primary Care Provider] - 1-2 days Placido Arriola MD [STAFF PHYSICIAN] - 1-2 days Time of Disposition: 20:35
== END 2022-05-30 20:58 | disposition home or self-care (01) ==
LOC: EC 18:26
DX: T85.9XXA Unspecified complication of internal prosthetic device, implant and graft, initial encounter (principal)
CPT/HCPCS: 51702; 51798; 99283

== ENCOUNTER → 2022-06-10 | Outpatient (CLI) | payer MEDICARE ==
--- NOTE | 2022-06-10 08:12 | US ---
EXAMINATION TYPE: US kidneys/renal and bladder DATE OF EXAM: 06/10/2022 COMPARISON: CT 12/23/2020 & US 02/12/2019 CLINICAL HISTORY: R31.0 GROSS HEMATURIA. Pt states recent gross hematuria EXAM MEASUREMENTS: Right Kidney: 11.3 x 4.7 x 4.9 cm Left Kidney: 10.7 x 5.3 x 4.1 cm Right Kidney: Cyst mid/medial= 0.7 x 0.6 x 0.7 cm/ No evidence of hydro Left Kidney: Cyst lateral= 1.2 x 1.0 x 1.1 cm/ No evidence of hydro Bladder: wnl Bilateral Jets seen: Yes There is no evidence for hydronephrosis at this point in time. No nephrolithiasis is seen. Cortical medullary differentiation is maintained. Bilateral simple appearing cysts. No masses are identified. The urinary bladder is anechoic. Bilateral ureteral jets are seen. IMPRESSION: 1. No hydronephrosis or nephrolithiasis. 2. No solid renal mass identified. 3. Bilateral simple renal cysts.
== END | disposition home or self-care (01) ==
LOC: RADUSWWP 07:30
PROVIDERS: ATTEND Urology
DX: N28.1 Cyst of kidney, acquired (principal); R31.0 Gross hematuria
CPT/HCPCS: 76770